=== PATIENT | male | born 1955 | race Caucasian/White ===

== ENCOUNTER 2017-01-19 16:03 | Observation (INO) | payer MEDICARE, MEDICAID ==
[2017-01-19 16:52] LABS: CHLORIDE,CL 102 mmol/L (98-115); SODIUM,NA 139 mmol/L (136-145)
[2017-01-19] MEDS ORDERED: Ondansetron 4 MG/2 ML SDV IV PRN (19:42)
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
[2017-01-19] MEDS: Dextrose 5%-0.45% NaCl 1,000 ML IV SCH (19:56)
[2017-01-19] MEDS: Pantoprazole 40 MG Vial IVPUSH SCH (19:56)
[2017-01-19] MEDS: cefTRIAXone 1 GM Vial IVPUSH SCH (19:56)
[2017-01-19] MEDS ORDERED: guaiFENesin/Dextromethorphan 100-10 MG/5 ML Soln 5 ML Cup GTUBE PRN (20:19)
[2017-01-19] MEDS: Gabapentin 300 MG Cap GTUBE SCH (20:49)
[2017-01-19] MEDS: traMADol 50 MG Tab GTUBE SCH (20:49)
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
[2017-01-20] MEDS: Dextrose 5%-0.45% NaCl 1,000 ML IV SCH (06:05)
[2017-01-20] MEDS: Gabapentin 300 MG Cap GTUBE SCH ×3 (08:47→21:05)
[2017-01-20] MEDS: Lactulose Soln 10 GM/15 ML 30 ML UD Cup GTUBE SCH (08:47)
[2017-01-20] MEDS: Citalopram 20 MG Tab GTUBE SCH (08:48)
[2017-01-20] MEDS: traMADol 50 MG Tab GTUBE SCH ×4 (08:48→21:05)
[2017-01-20] MEDS: Pantoprazole 40 MG Vial IVPUSH SCH (08:49)
[2017-01-20 09:11] LABS: CHLORIDE,CL 101 mmol/L (98-115); SODIUM,NA 139 mmol/L (136-145)
[2017-01-20] MEDS ORDERED: FIBER PEGTUBE SCH (09:30)
[2017-01-20] MEDS ORDERED: LACTOSE REDUCED FOOD PEGTUBE SCH (09:30)
[2017-01-20] MEDS ORDERED: Dextrose 5%-0.45% NaCl 1,000 ML IV SCH (09:45)
--- NOTE | 2017-01-20 10:20 | PCM.PN ---
- General Info Date of Service: 01/20/17 Functional Status: Reports: pain controlled, urinating. Denies: new symptoms - Review of Systems General: Denies: Fever, Chills, Appetite Pulmonary: Denies: shortness of breath, cough Cardiovascular: Denies: Chest Pain Gastrointestinal: Reports: Other (PEG tube in place). Denies: Abdominal pain, Constipation, Diarrhea, Nausea, Vomiting - Patient Data Vitals - most recent: Last Vital Signs Temp 96.9 F 01/20/17 06:28 Pulse 56 L 01/20/17 06:28 Resp 20 01/20/17 06:28 BP 146/78 H 01/20/17 06:28 Pulse Ox 97 01/20/17 06:28 Weight - most recent: 132 lb I&O - last 24 hours: Intake & Output 01/19/17 01/20/17 01/20/17 22:59 06:59 14:59 Intake Total 150 1148 Balance 150 1148 Lab Results last 24 hrs: Laboratory Results - last 24 hr 01/20/17 01/20/17 Range/Units 08:35 08:35 WBC 9.9 (5.0-10.0) 10^3/uL RBC 5.06 (4.50-6.00) 10^6/uL Hgb 12.3 L (13.0-17.0) g/dL Hct 39.5 L (40.0-52.0) % MCV 78.0 L (82.0-92.0) fL MCH 24.2 L (27.0-31.0) pg MCHC 31.0 L (32.0-36.0) g/dL RDW 18.4 H (11.5-14.5) % Plt Count 193 (150-300) 10^3/uL MPV 8.2 (7.4-10.4) fL Neut % (Auto) 71.4 H (50.0-70.0) % Lymph % (Auto) 17.7 L (20.0-40.0) % Pettis % (Auto) 8.3 H (2.0-8.0) % Eos % (Auto) 2.4 (1.0-3.0) % Baso % (Auto) 0.2 (0.0-1.0) % Neut # (Auto) 7.1 H (2.5-7.0) 10^3/uL Lymph # (Auto) 1.8 (1.0-4.0) 10^3/uL Pettis # (Auto) 0.8 (0.1-0.8) 10^3/uL Eos # (Auto) 0.2 (0.1-0.3) 10^3/uL Baso # (Auto) 0.0 (0.0-0.1) 10^3/uL Sodium 139 (136-145) mmol/L Potassium 3.6 (3.3-5.3) mmol/L Chloride 101 (98-115) mmol/L Carbon Dioxide 27.2 (21.0-32.0) mmol/L BUN 19 (6-25) mg/dL Creatinine 0.77 (0.51-1.17) mg/dL Est Cr Clr Drug Dosing TNP Estimated GFR (MDRD) > 60 mL/min Glucose 139 H (70-110) mg/dL Calcium 8.9 (8.7-10.3) mg/dL Med Orders - Current: Current Medications Ceftriaxone Sodium (Rocephin) 1 gm IVPUSH Q24H [facility] Last Admin: 01/19/17 19:56 Dose: 1 gm Citalopram Hydrobromide (Celexa) 30 mg GTUBE DAILY [facility] Last Admin: 01/20/17 08:48 Dose: 30 mg Gabapentin (Neurontin) 600 mg GTUBE TID [facility] Last Admin: 01/20/17 08:47 Dose: 600 mg Guaifenesin/Phenylephrine HCl (Robitussin Dm) 10 ml GTUBE Q4H PRN PRN Reason: Cough Dextrose/Sodium Chloride (Dextrose 5%-1/2 Ns) 1,000 mls @ 50 mls/hr IV ASDIRECTED [facility] Lactulose (Cephulac) 20 gm GTUBE DAILY [facility] Last Admin: 01/20/17 08:47 Dose: 20 gm Lactose-Reduced Food /Fiber [Isosource 1. 5 Mykel Tube Feed] 70 ml PEGTUBE ASDIRECTED DAVY Ondansetron HCl (Zofran) 4 mg IV Q4H PRN PRN Reason: Nausea/Vomiting Pantoprazole Sodium (Protonix Iv) 40 mg IVPUSH DAILY [facility] Last Admin: 01/20/17 08:49 Dose: 40 mg Tramadol HCl (Ultram) 50 mg GTUBE QID [facility] Last Admin: 01/20/17 08:48 Dose: 50 mg Discontinued Medications Dextrose/Sodium Chloride (Dextrose 5%-1/2 Ns) 1,000 mls @ 100 mls/hr IV ASDIRECTED [facility] Last Admin: 01/20/17 06:05 Dose: 100 mls/hr - Exam Quality Assessment: DVT prophylaxis (lovenox). No: supplemental oxygen, urine catheter, skin breakdown General: alert, oriented, cooperative, no acute distress Lungs: Clear to auscultation, Normal respiratory effort Cardiovascular: Regular Rate, Regular Rhythm Abdomen: bowel sounds present, soft, no tenderness, no distension, other (PEG tube in place) Skin: warm, dry, other (PEG tube site-mildly erythematous around opening with scant yellowish drainage, nontender) Neurological: normal speech Psy/Mental Status: alert. No: normal affect (flat affect) - Problem List Review Problem List Initiated/Reviewed/Updated: Yes - My Orders Last 24 Hours: My Active Orders 01/19/17 19:39 OCCULT BLD GASTRIC Routine OCCULT BLOOD DIAGNOSTIC [OP] Routine 01/19/17 19:42 Intake and Output [RC] 0600,1400,2300 May Shower [RC] ASDIRECTED Oxygen Therapy [RC] PRN Up With Assistance [RC] ASDIRECTED VTE/DVT Education [RC] PER UNIT ROUTINE Vital Signs [RC] 0700,1100,1500,1900,2300,0300 Consult to Inserting Operator [CONS] Routine Ondansetron [Zofran] 4 mg IV Q4H PRN Resuscitation Status Routine 01/19/17 19:45 Pantoprazole [ProTONIX IV] 40 mg IVPUSH DAILY 01/19/17 19:53 Antiembolic Devices [RC] PER UNIT ROUTINE LAURA Hose [Antiembolic Hose] [OM.PC] Routine 01/19/17 20:00 cefTRIAXone [Rocephin] 1 gm IVPUSH Q24H 01/19/17 20:17 Communication Order [RC] QID 01/19/17 20:19 Dextromethorphan/guaiFENesin [Robitussin DM] 10 ml GTUBE Q4H PRN 01/19/17 21:00 Gabapentin [Neurontin] 600 mg GTUBE TID traMADol [Ultram] 50 mg GTUBE QID 01/19/17 Dinner NPO [Nothing Per Oral Diet] [DIET] 01/20/17 05:00 OCCULT BLOOD DIAGNOSTIC [OP] Routine 01/20/17 09:00 Citalopram [Celexa] 30 mg GTUBE DAILY Lactulose [Cephulac] 20 gm GTUBE DAILY 01/20/17 09:05 CULTURE WOUND [RM] Routine 01/20/17 09:30 Lactose-Reduced Food/Fiber [Isosource 1.5 Mkyel Tube Feed] 70 ml PEGTUBE ASDIRECTED 01/20/17 09:45 Dextrose 5%-0.45% NaCl [Dextrose 5%-1/2 NS] 1,000 ml IV ASDIRECTED 01/21/17 05:11 BMP [BASIC METABOLIC PANEL,BMP] [CHEM] AM CBC WITH AUTO DIFF [HEME] AM - Plan Plan:: PRIMARY ASSESSMENT/PLAN: Rule out GI bleed. Patient has had no more episodes of nausea/vomiting. No abdominal pain. Hgb stable at 12.3. Amylase 60. Initial stool for occult negative. Repeat stool for occult x 2 and gastric occult sample if available. Restart tube feedings. Decrease IVF to 50 mL/hr. Continue protonix IV daily and zofran IV PRN. Continue to hold aspirin. Repeat CBC in AM. History of GI bleed. Leukocytosis, unknown etiology, improving. WBC 9.9 with left shift. UA negative. Blood cultures x 2 pending. Wound culture obtained of PEG tube site. Continue IV rocephin. Repeat CBC in AM. Dehydration, resolving. BUN/creatinine ratio 24. Decrease IVF to 50 mL/hr. Repeat BMP in AM. Question PEG tube site infection. Culture obtained. 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 PEG tube in place. Restart tube feedings as before. Hemiparesis affecting left side. Left above the knee amputation. Site appears intact without obvious signs of infection. History of hypertension. History of hyperlipidemia. History of iron deficiency anemia. History of tobacco abuse disorder. PVD. Depression. Continue celexa. Chronic back pain. Continue tramadol and gabapentin. GERD. Holding omeprazole and switched to Protonix IV. Alcoholic liver cirrhosis without ascites. AST slightly elevated at 43. DVT prophylaxis: Score of 2. Continue laura stocking on right leg. Overall plan: Restart tube feedings. Continue to monitor for nausea, vomiting, or abdominal pain. If no issues occur, patient would most likely be ready to be discharged back to the [facility] tomorrow. The treatment plan was reviewed with Dr. Tineo. He is in agreement with the plan of care.
[2017-01-20] MEDS: cefTRIAXone 1 GM Vial IVPUSH SCH (21:05)
[2017-01-21] MEDS: Citalopram 20 MG Tab GTUBE SCH (09:29)
[2017-01-21] MEDS: Gabapentin 300 MG Cap GTUBE SCH ×2 (09:30→13:08)
[2017-01-21] MEDS: Pantoprazole 40 MG Vial IVPUSH SCH (09:32)
[2017-01-21] MEDS: traMADol 50 MG Tab GTUBE SCH ×2 (09:32→13:06)
[2017-01-21] MEDS: Lactulose Soln 10 GM/15 ML 30 ML UD Cup GTUBE SCH (09:34)
[2017-01-21 14:14] VITALS: BP 158/77
--- NOTE | 2017-01-23 08:10 | DISCH ---
FINAL DIAGNOSES: 1. GI bleed, small, upper. 2. History of GI bleed with subsequent blood transfusions required in the past. 3. Leukocytosis, improving. 4. Dehydration, resolved. SECONDARY ASSESSMENT: 1. Status post right-sided CVA 2009 with dysphagia. 2. PEG tube in place. 3. Hemiparesis affecting left side. 4. Left above-knee amputation. 5. History of hypertension. 6. History of hyperlipidemia. 7. History of iron deficiency anemia. 8. History of tobacco use disorder. 9. Peripheral vascular disease. 10.Depression. 11.Chronic back pain. 12.GERD. 13.Alcoholic liver cirrhosis without ascites. HISTORY: This 61-year-old gentleman came to the ED with concerns of GI bleed. He has had this in the past. He has required other previous admissions and even an ED transfer to [place] due to blood antibodies requiring transfusion as the patient is a resident of [facility]. The nurses were concerned that he had three episodes of what they called coffee-ground colored emesis. The patient states he had no abdominal pain; however, he was nauseated when he came to the ED. He stated he had a bowel movement in the ED. He had no fever. No chills. No shortness of breath. No chest pain. He did have a workup in the ED, revealed a stable hemoglobin with a negative stool for occult blood at that time. His abdominal x-ray was negative. He was found to have an elevated white count, they thought was possible G-tube site. He was admitted for further workup, again he does have history of GI bleed. The patient even though he has dysphagia, he does take in honey thickened diet. He is also on about 20 hours of tube feedings per day, even though the ED report stated he took nothing by mouth. HOSPITAL COURSE: The patient's hospital course went fairly well. Although he did have a negative stool Hemoccult, he did have subsequent positive report on day 2, remained hemodynamically stable. His hemoglobin was monitored, it was stable around 12.7 to 12.3. There was hospitalization. The patient did refuse an upper GI endoscopy. We did continue with PPI therapy. However, we did change him to Protonix while he was in the hospital. He did have a slightly high potassium level of 5.4; however, on discharge, it was normal. Sodium 139, BUN 19, creatinine 0.77. No source of infection was noted. Microbiology report did show no growth on blood cultures, did show a wound culture to the G-tube site with staph coagulase negative. Did have a slight white count around 13,900 on admission, however that was normal on discharge. Did restart tube feedings. We continue with Protonix. We continued to hold aspirin. We really wanted to perform another upper GI scope, patient had one around 03/2016; however, he did refuse, and he was subsequently discharged. However, we did note that his PPI was most likely given on full stomach, this was changed to empty stomach at 1800 at night. MEDICATIONS: Aspirin was continued on discharge, risk versus benefit was discussed with the patient, also PPI omeprazole 20 mg b.i.d., ensure that is on empty stomach. The patient can continue on all other home medications. DISPOSITION: We were going to do an upper GI, however, the patient refused, so he was subsequently transferred back to [facility]. Nurses to report any ongoing upper GI bleed or lower GI bleed. Monitor hemoglobin one week, see the [facility] provider in one week, monitor for any hemodynamic changes. He can go back on his diet of thickened nectar along with his tube feedings. Please ensure PPI therapy is given on empty stomach, although we strongly encouraged the patient to have upper scope. We feel like his decision to refuse this is incongruent with further treatments of patient needing blood transfusions and frequent hospitalizations. An AMA was considered, however, we did not do this. CONSIDERATIONS AT FOLLOWUP: 1. CBC in one week, consider future upper GI, we can do this probably at the [facility] in the future if needed, if the patient would agree. 2. Continue aspirin, although with history of GI bleed, we feel this is risks versus benefit. He can get more benefit from subsequent risk. MDM: 47 minutes was spent on this discharge planning and process and coordinating care to the [facility] and working with vp digital marketing social media and crm, and Pharmacy. /[id number]/MODL MTDD
== END 2017-01-21 14:55 ==
LOC: KA.ED 16:03 → KA.MS 18:10
PROVIDERS: ADMIT Physician Assistant; ATTEND Nurse Practitioner Family
DX: K92.2 Gastrointestinal hemorrhage, unspecified (principal); D72.829 Elevated white blood cell count, unspecified; I10 Essential (primary) hypertension; E78.00 Pure hypercholesterolemia, unspecified; K21.9 Gastro-esophageal reflux disease without esophagitis; F32.9 Major depressive disorder, single episode, unspecified; Z79.82 Long term (current) use of aspirin; Z79.899 Other long term (current) drug therapy; Z98.890 Other specified postprocedural states; Z87.891 Personal history of nicotine dependence; Z91.018 Allergy to other foods; G81.94 Hemiplegia, unspecified affecting left nondominant side; E78.5 Hyperlipidemia, unspecified; D50.9 Iron deficiency anemia, unspecified; I73.9 Peripheral vascular disease, unspecified; G89.29 Other chronic pain; M54.5 Low back pain; K70.30 Alcoholic cirrhosis of liver without ascites
CPT/HCPCS: 36415; 74020; 80048; 80053; 81001; 82150; 82270; 82272; 85025; 85610; 85730; 87040; 87070; 87077; 96361; 96374; 96375; 96376; 99285; A9270; C9113; G0378; J0696; J7042

== ENCOUNTER 2017-06-05 07:46 | Day surgery (SDC) | payer MEDICARE, MEDICAID ==
[~2017-06-05 07:46] MED LIST: Midazolam 1 MG/ML 2 ML SDV ONE; Propofol 200 MG/20 ML SDV ONE; fentaNYL 100 MCG/2 ML SDV ONE
[2017-06-05] MEDS ORDERED: EPINEPHrine 1:10,000 1 MG/10 ML Syringe ONE (07:57)
[2017-06-05] MEDS ORDERED: Sodium Chloride 0.9% 5 ML Syringe FLUSH PRN (08:00)
[2017-06-05] MEDS ORDERED: Lactated Ringers 1,000 ML IV SCH (08:00)
[2017-06-05] MEDS ORDERED: fentaNYL 100 MCG/2 ML SDV IV ONE (09:15)
[2017-06-05] MEDS ORDERED: Midazolam 1 MG/ML 2 ML SDV IV ONE (09:15)
[2017-06-05] MEDS ORDERED: Propofol 200 MG/20 ML SDV IV ONE (09:15)
--- NOTE | 2017-06-05 09:39 | PCM.OPNOTE ---
- General Post-Op/Procedure Note Date of Surgery/Procedure: 06/05/17 Operative Procedure(s): Persistent vomiting, GERD, recent upper gastrointestinal bleeding, Findings: 5 cm hiatal hernia with evidence of reflux esophagitis. Otherwise negative examination. Pre Op Diagnosis: Persistent vomiting, GERD, recent upper GI bleeding Post-Op Diagnosis: Lex at the shanique hernia with reflux esophagitis. No acute cause of bleeding noted. Anesthesia Technique: MAC Primary Surgeon: Priti Acosta Complications: None Condition: Good Free Text/Narrative:: INFORMED CONSENT: Patient is here today for elective upper GI endoscopy. All aspects of this procedure have been discussed with the patient. All possible complications also, including possibility of perforation, infection, pain, bleeding, numbness of the throat, swallowing difficulty and unknown complications. In the event of perforation the patient may need surgical exploration to repair the defect. The patient understands fully well. Patient did not have any further questions for me at the end of my interview. The patient wishes for me to proceed. INSTRUMENT USED: Video gastroscope ANESTHESIA: [MAC] ASA CLASSIFICATION: [] PROCEDURE PERFORMED: [upper gastrointestinal endoscopy and biopsy at the gastroesophageal junction] PHARYNX: Normal. ESOPHAGUS: Normal. Proximal: Normal. Middle: mild esophagitis noted.. Lower: moderate esophagitis noted. if I synovator hiatal hernia is noted. GE Junction: moderately esophagitis noted. STOMACH: Normal. Cardia: Normal. Fundus: Normal. Lesser Curvature: Normal. Greater Curvature: Normal. The gastrostomy tube is noted. Antrum: Normal. Pylorus: Normal. DUODENUM: Normal. First Part: Normal. Second Part: Normal. Third Part: Normal. RETROFLEXION: Normal. BIOPSY: None. TOLERANCE: Excellent. COMPLICATIONS: None.
[2017-06-05 10:19] VITALS: BP 185/85
== END 2017-06-05 11:05 ==
LOC: KA.SDS 07:46
PROVIDERS: ATTEND Family Medicine
DX: K29.50 Unspecified chronic gastritis without bleeding (principal); K21.0 Gastro-esophageal reflux disease with esophagitis; K44.9 Diaphragmatic hernia without obstruction or gangrene; I10 Essential (primary) hypertension; E78.5 Hyperlipidemia, unspecified; F32.9 Major depressive disorder, single episode, unspecified; Z91.018 Allergy to other foods; Z79.82 Long term (current) use of aspirin; Z79.899 Other long term (current) drug therapy
CPT/HCPCS: 43239; J2250; J2704; J3010; J7120; 00740; 88305

== ENCOUNTER 2017-07-27 09:02 | Inpatient (IN) | payer MEDICARE, MEDICAID ==
--- NOTE | 2017-07-27 09:34 | EDM.PDOC ---
ED HPI GENERAL MEDICAL PROBLEM - General Chief Complaint: Gastrointestinal Problem Stated Complaint: ABD PAIN, NAUSEA Time Seen by Provider: 07/27/17 09:13 Source of Information: Reports: Patient, EMS, [facility] Records - History of Present Illness INITIAL COMMENTS - FREE TEXT/NARRATIVE: Patient presents via ambulance from [place] in [place] with report of abdominal pain and vomiting as well as pus around his feeding tube. Pt tells me that he did vomit yesterday but not today and now has no nausea or abdominal pain. He just doesn't feel but nothing specific. He has daily bowel movements and last was yesterday. No fever, dysuria, chest pain, back pain, cough. He says the pus around the feeding tube started about a week ago. - Related Data Allergies Allergy/AdvReac Type Severity Reaction Status Date / Time citric acid Allergy Cannot Verified 07/27/17 13:02 Remember orange juice Allergy Sweating Verified 07/27/17 13:02 Home Meds: Home Meds Citalopram [Celexa] 30 mg PO DAILY 08/05/15 [History] Calcium Carbonate/Vitamin D3 [Calcium 600-Vit D3 400 Tablet] 1 tab PO BID [History] Folic Acid 1 mg PEGTUBE DAILY 04/03/16 [History] Gabapentin [Neurontin] 600 mg PEGTUBE TID 04/03/16 [History] Lactobacillus Combination No.4 [Probiotic] 1 each GTUBE BID 06/20/16 [History] traMADol [Ultram] 50 mg PO QID 06/20/16 [History] Lactulose 30 ml PEGTUBE DAILY 01/19/17 [History] Acetaminophen [Tylenol] 650 mg PO Q6H PRN 06/05/17 [History] Dextromethorphan/guaiFENesin [Robitussin DM] 10 ml PO Q4H PRN 06/05/17 [History] Acetaminophen 325 - 650 mg PO Q6H PRN 07/27/17 [History] Aspirin 81 mg PEGTUBE DAILY 07/27/17 [History] Magnesium Hydroxide [Milk of Magnesia] 30 ml PO DAILY PRN 07/27/17 [History] Omeprazole 20 mg PEGTUBE BID 07/27/17 [History] Past Medical History HEENT History: Reports: Other (See Below) Other HEENT History: Dysphasia Cardiovascular History: Reports: High Cholesterol, Hypertension Respiratory History: Reports: Bronchitis, Recurrent, SOB Gastrointestinal History: Reports: Chronic Constipation, GERD, GI Bleed Other Gastrointestinal History: PEG Tube Genitourinary History: Reports: Urinary Incontinence Musculoskeletal History: Reports: Fracture Other Musculoskeletal History: Femur fracture Neurological History: Reports: CVA Other Neuro History: Left side paralysis Psychiatric History: Reports: Addiction, Depression Other Psychiatric History: hx of alcohol abuse and nicotine dependence Other Endocrine/Metabolic History: sugars checked QID at [place]. Hematologic History: Reports: Anemia Other Hematologic History: Patient has many antibodies in blood. Dermatologic History: Reports: Other (See Below) Other Dermatologic History: ulcer to left foot-MSSA 04/08/16 - Infectious Disease History Infectious Disease History: Reports: Hepatitis C - Past Surgical History Head Surgeries/Procedures: Reports: None GI Surgical History: Reports: EGD Other Musculoskeletal Surgeries/Procedures:: Pt presents with left hip pain s/p fall. Social & Family History - Family History Family Medical History: Noncontributory HEENT: Reports: None Cardiac: Reports: None, MA Respiratory: Reports: None GI: Reports: None : Reports: None OBGYN: Reports: None Musculoskeletal: Reports: None Neurological: Reports: None Psychiatric: Reports: None Endocrine/Metabolic: Reports: None Hematologic: Reports: None Immunologic: Reports: None Dermatologic: Reports: None Oncologic: Reports: None - Tobacco Use Smoking Status *Q: Former Smoker Packs/Tins Daily: 1 Used Tobacco, but Quit: Yes Month Tobacco Last Used: Oct Second Hand Smoke Exposure: No - Caffeine Use Caffeine Use: Reports: None - Recreational Drug Use Recreational Drug Use: No - Living Situation & Occupation Living situation: Reports: Extended Care Facility ED [facility] - Review of Systems Review Of Systems: See Below Constitutional: Reports: Malaise. Denies: Fever, Chills, Weakness, Diaphoresis HEENT: Denies: Ear Pain, Throat Pain, Vision Change Respiratory: Denies: Shortness of Breath, Cough Cardiovascular: Denies: Chest Pain, Lightheadedness, Syncope GI/Abdominal: Denies: Abdominal Pain, Constipation, Diarrhea, Nausea, Vomiting : Denies: Dysuria Musculoskeletal: Reports: Arm Pain (left, chronic). Denies: Neck Pain, Shoulder Pain, Back Pain Skin: Denies: Cyanosis, Jaundice, Mottled, Pallor, Diaphoresis Neurological: Denies: Confusion, Dizziness, Headache Psychiatric: Denies: Agitation, Confusion ED EXAM, GI/ABD - Physical Exam Exam: See Below Exam Limited By: No Limitations General Appearance: Alert, WD/WN, No Apparent Distress Eyes: Bilateral: Normal Appearance, EOMI Ears: Normal External Exam, Hearing Grossly Normal Nose: Normal Inspection, No Blood Throat/Mouth: Normal Inspection, Normal Lips, Normal Voice, No Airway Compromise Head: Atraumatic, Normocephalic Neck: Normal Inspection, Supple, Non-Tender, Full Range of Motion. No: Carotid Bruit Respiratory/Chest: No Respiratory Distress, Lungs Clear, Normal Breath Sounds, No Accessory Muscle Use Cardiovascular: Normal Peripheral Pulses, Tachycardia, Irregularly Irregular GI/Abdominal Exam: Normal Bowel Sounds, Soft, Non-Tender, No Organomegaly, No Distention, Other (There is a mid-epigastric feeding tube that has a moderate amount of yellow purulenct visible around it at the portal; this is swabbed for culture) Extremities: Other (right leg amputee) Neurological: Alert, Oriented, Normal Cognition, No Motor/Sensory Deficits Psychiatric: Normal Affect, Normal Mood Skin Exam: Warm, Dry, Intact, Normal Color, No Rash Course - Vital Signs Last Recorded V/S: Last Vital Signs Temp 98.1 F 07/27/17 09:26 Pulse 158 H 07/27/17 11:49 Resp 20 07/27/17 11:46 BP 110/71 07/27/17 11:49 Pulse Ox 100 07/27/17 11:46 - Orders/Labs/Meds Orders: Active Orders 24 hr Category Date Time Status Abdomen Pelvis w Cont [CT] Stat Exams 07/27/17 10:15 Ordered CULTURE BLOOD [BC] Stat Lab 07/27/17 10:14 Ordered CULTURE BLOOD [BC] Stat Lab 07/27/17 10:14 Ordered CULTURE WOUND [RM] Stat Lab 07/27/17 09:25 Ordered Sodium Chloride 0.9% [Normal Saline] Med 07/27/17 10:30 Active 50 ml FLUSH ASDIRECTED Blood Culture x2 Reflex Set [OM.PC] Stat Oth 07/27/17 10:14 Ordered Medication Orders Sodium Chloride (Normal Saline) 50 ml FLUSH ASDIRECTED DAVY Labs: Laboratory Tests 07/27/17 07/27/17 07/27/17 Range/Units 09:20 09:20 09:20 WBC 14.6 H (5.0-10.0) 10^3/uL RBC 5.38 (4.50-6.00) 10^6/uL Hgb 13.2 (13.0-17.0) g/dL Hct 41.9 (40.0-52.0) % MCV 78.0 L (82.0-92.0) fL MCH 24.5 L (27.0-31.0) pg MCHC 31.4 L (32.0-36.0) g/dL RDW 18.3 H (11.5-14.5) % Plt Count 353 H (150-300) 10^3/uL MPV 8.0 (7.4-10.4) fL Neut % (Auto) 73.9 H (50.0-70.0) % Lymph % (Auto) 10.5 L (20.0-40.0) % Leon % (Auto) 14.1 H (2.0-8.0) % Eos % (Auto) 0.7 L (1.0-3.0) % Baso % (Auto) 0.8 (0.0-1.0) % Neut # (Auto) 10.8 H (2.5-7.0) 10^3/uL Lymph # (Auto) 1.5 (1.0-4.0) 10^3/uL Leon # (Auto) 2.1 H (0.1-0.8) 10^3/uL Eos # (Auto) 0.1 (0.1-0.3) 10^3/uL Baso # (Auto) 0.1 (0.0-0.1) 10^3/uL Sodium 138 (136-145) mmol/L Potassium 4.0 (3.3-5.3) mmol/L Chloride 101 (98-115) mmol/L Carbon Dioxide 20.8 L (21.0-32.0) mmol/L BUN 23 (6-25) mg/dL Creatinine 0.91 (0.51-1.17) mg/dL Est Cr Clr Drug Dosing TNP Estimated GFR (MDRD) > 60 mL/min Glucose 131 H (70-110) mg/dL Lactic Acid 1.8 (0.4-2.0) mmol/L Calcium 9.1 (8.7-10.3) mg/dL Total Bilirubin 1.0 (0.2-1.0) mg/dL AST 13 L (15-37) U/L ALT 19 (12-78) U/L Alkaline Phosphatase 103 (46-116) IU/L C-Reactive Protein > 12.0 H (0.0-0.9) mg/dL Total Protein 8.5 H (6.4-8.2) g/dL Albumin 2.78 L (3.00-4.80) g/dL Meds: Medications Generic Name Dose Route Start Last Admin Trade Name Freq PRN Reason Stop Dose Admin Sodium Chloride 50 ml 07/27/17 10:30 Normal Saline FLUSH ASDIRECTED DAVY Discontinued Medications Generic Name Dose Route Start Last Admin Trade Name Freq PRN Reason Stop Dose Admin Diltiazem HCl 20 mg 07/27/17 11:51 Diltiazem IVPUSH 07/27/17 11:52 NOW ONE Ceftriaxone Sodium 2 gm/ 50 mls @ 200 mls/hr 07/27/17 11:59 07/27/17 12:19 Sodium Chloride IV 07/27/17 12:13 200 mls/hr ONETIME ONE Administration Metronidazole 500 mg/ Premix 0 mls @ 100 mls/hr 07/27/17 11:59 IV 07/27/17 12:00 ONETIME ONE Iopamidol 75 ml 07/27/17 10:23 Isovue-300 (61%) IV 07/27/17 10:24 ONETIME ONE Metoprolol Tartrate 5 mg 07/27/17 09:42 07/27/17 09:46 Lopressor IVPUSH 07/27/17 09:43 5 mg ONETIME ONE Administration Metoprolol Tartrate 5 mg 07/27/17 10:30 07/27/17 11:49 Lopressor IVPUSH 07/27/17 10:36 5 mg Q5M [facility] Administration - Re-Assessments/Exams Free Text/Narrative Re-Assessment/Exam: 07/27/17 09:36 Patient is not aware of any history of A Fib and we cannot find any record of it in his chart. 07/27/17 12:02 CT results show no evidence of intra-abdominal abscess. WBC is 14.6 with elevated CRP at 12. Discussed with SOBIA Styles who accepted for admission to treat the feeding tube infection and the A Fib with RVR. So far metoprolol 5 mg IV hasn't been successful in controlling the tachycardia. Will try 2nd dose and oral maintenance if successful. Patient wants to go back to [place] rather than stay in hospital but I discussed with him that with his infection and elevated heart rate he definitely needs to start treatment here for a day or two before he can return to [place]. He reluctantly agrees with this plan. 07/27/17 12:39 Have started Rocephin 2 gm and Metronidazole 1 gm IV for the infection. 07/27/17 12:42 Following the second dose of IV Metoprolol 5 mg, I watched his HR on the remote monitor and he consistently beats in the 150's when a nurse or provider are in the room with him but drops to 95-110 when alone in the room. Not sure why this is the case. 07/27/17 13:30 The dose of oral metoprolol 50 mg was given for maintenance when HR was controlled with the second dose of IVP; now the HR is staying in the 150's so will give the third dose of metoprolol 5 mg IVP to try to regain control and hopefully the oral dose will keep it down without over shooting our goal or causing hypotension. Will also give a bolus of fluids now. 07/27/17 14:10 Heart rate is down in 80-95 range now. Will transfer to inpatient status. Departure - Departure Time of Disposition: 14:10 Disposition: Admitted As Inpatient 64 Condition: Fair Clinical Impression: Complication of feeding tube Chronic wound infection of abdomen Qualifiers: Encounter type: initial encounter Qualified Code(s): S31.109A - Unspecified open wound of abdominal wall, unspecified quadrant without penetration into peritoneal cavity, initial encounter; L08.9 - Local infection of the skin and subcutaneous tissue, unspecified; L08.9 - Local infection of the skin and subcutaneous tissue, unspecified - Discharge Information Referrals: Priti Acosta MD [Primary Care Provider] - Forms: ED Department Discharge - My Orders Last 24 Hours: My Active Orders 07/27/17 09:25 CULTURE WOUND [RM] Stat 07/27/17 10:14 CULTURE BLOOD [BC] Stat CULTURE BLOOD [BC] Stat Blood Culture x2 Reflex Set [OM.PC] Stat 07/27/17 10:15 Abdomen Pelvis w Cont [CT] Stat 07/27/17 10:30 Sodium Chloride 0.9% [Normal Saline] 50 ml FLUSH ASDIRECTED - Assessment/Plan Last 24 Hours: My Active Orders 07/27/17 09:25 CULTURE WOUND [RM] Stat 07/27/17 10:14 CULTURE BLOOD [BC] Stat CULTURE BLOOD [BC] Stat Blood Culture x2 Reflex Set [OM.PC] Stat 07/27/17 10:15 Abdomen Pelvis w Cont [CT] Stat 07/27/17 10:30 Sodium Chloride 0.9% [Normal Saline] 50 ml FLUSH ASDIRECTED
[2017-07-27] MEDS ORDERED: Metoprolol Tartrate 5 MG/5 ML SDV IVPUSH ONE ×3 (09:42→13:27)
[2017-07-27 09:58] LABS: CHLORIDE,CL 101 mmol/L (98-115); SODIUM,NA 138 mmol/L (136-145)
[2017-07-27] MEDS ORDERED: Sodium Chloride 0.9% 50 ML SDV FLUSH SCH (10:30)
[2017-07-27] MEDS: Metoprolol Tartrate 5 MG/5 ML SDV IVPUSH SCH ×2 (11:49→13:30)
[2017-07-27] MEDS ORDERED: Diltiazem 25 MG/5 ML SDV IVPUSH ONE (11:51)
[2017-07-27] MEDS ORDERED: cefTRIAXone 2 GM in Sodium Chloride 0.9% 50 ML IV ONE (11:59)
[2017-07-27] MEDS ORDERED: METRONIDAZOLE IV ONE (11:59)
[2017-07-27] MEDS ORDERED: NORMAL SALINE IV ONE (11:59)
[2017-07-27] MEDS ORDERED: Metoprolol Tartrate 50 MG Tab PO ONE (12:24)
[2017-07-27] MEDS ORDERED: cefTRIAXone 1 GM Vial ONE (12:36)
[2017-07-27] MEDS ORDERED: Sodium Chloride 0.9% 1,000 ML IV ONE (13:27)
[2017-07-27] MEDS: Iopamidol 612 MG/ML 75 ML Bottle IV ONE ×2 (15:30→16:48)
[2017-07-27] MEDS ORDERED: Acetaminophen 325 MG Tab PO PRN (15:35)
[2017-07-27] MEDS ORDERED: Magnesium Hydroxide 400 MG/5 ML Susp 30 ML Cup PO PRN (15:35)
[2017-07-27] MEDS ORDERED: guaiFENesin/Dextromethorphan 100-10 MG/5 ML Soln 5 ML Cup PO PRN (15:35)
[2017-07-27] MEDS: Gabapentin 300 MG Cap SCH ×2 (18:10→20:35)
[2017-07-27] MEDS: traMADol 50 MG Tab PO SCH ×2 (18:10→20:35)
[2017-07-27] MEDS: Calcium Citrate/Vitamin D3 315 MG-250 Unit Tab PO SCH (20:34)
[2017-07-27] MEDS: Metoprolol Tartrate 50 MG Tab PO SCH (20:35)
[2017-07-27] MEDS: B.Bifidum/B.Longum/L.Acidophilus/L.Rhamnosus (Probiotic) Cap SCH (20:35)
[2017-07-27] MEDS ORDERED: Omeprazole 20 MG Cap.CR SCH (21:00)
[2017-07-28] MEDS: Metoprolol Tartrate 50 MG Tab PO SCH ×2 (08:10→21:11)
[2017-07-28] MEDS: Omeprazole 20 MG Cap.CR PO SCH ×2 (08:11→08:14)
[2017-07-28] MEDS: Aspirin 81 MG Tab.Chew PEGTUBE SCH (08:12)
[2017-07-28] MEDS: traMADol 50 MG Tab PO SCH ×4 (08:12→21:12)
[2017-07-28] MEDS: Calcium Citrate/Vitamin D3 315 MG-250 Unit Tab PO SCH ×2 (08:13→21:11)
[2017-07-28] MEDS: B.Bifidum/B.Longum/L.Acidophilus/L.Rhamnosus (Probiotic) Cap SCH ×2 (08:13→21:11)
[2017-07-28] MEDS: Citalopram 20 MG Tab PO SCH (08:13)
[2017-07-28] MEDS: Gabapentin 300 MG Cap SCH ×3 (08:13→21:12)
[2017-07-28] MEDS: Folic Acid 1 MG Tab SCH (08:13)
[2017-07-28] MEDS: Lactulose Soln 10 GM/15 ML 30 ML UD Cup SCH (08:14)
[2017-07-28 09:00] LABS: CHLORIDE,CL 106 mmol/L (98-115); SODIUM,NA 139 mmol/L (136-145)
[2017-07-28] MEDS ORDERED: cefTRIAXone 1 GM in Sodium Chloride 0.9% 50 ML IV ONE (10:02)
[2017-07-28] MEDS: Enoxaparin 40 MG/0.4 ML Syringe SUBCUT SCH (10:21)
--- NOTE | 2017-07-28 11:02 | PCM.HP ---
H&P History of Present Illness - General Date of Service: 07/27/17 Admit Problem/Dx: Admission Diagnosis/Problem Admission Diagnosis/Problem Atrial fibrillation with rapid ventricular response Source of Information: Patient, EMS Notes Reviewed, Correction Records, Old Records - History of Present Illness Initial Comments - Free Text/Narative: Patient admitted to hospital from the ER. He is a resident of the [facility]. It is reported by the group home care nursing staff the patient has been experiencing abdominal discomfort/N/V over the coarse of the past 4 days. He does have a feeding tube and receives Jevity feedings at the facility. Nursing report he has experienced these symptoms in the past with the feedings. Tissue surrounding the tube insertion site has been reddened with a pus type discharge. At the [place] a low grade fever was present. On arrival to the ER patient denied specific abdominal pain/N/V but offered he just did not feel good. Prior to hospital last stool was on Saturday. He did have several stools in the ER. ER workup completed. CT results indicated no evidence of intra- abdominal abscess. WBC is 14.6 with elevation of CRP at 12. He was give 2 gm of Rocephin and Flagyl 500mg in the ER. A Fib with RVR identified. No previous history. He received IV Metoprolol 5mg x 3 with Metoprolol 50mg oral in the ER. He then converted to NSR and was admitted to the floor. Onset of Symptoms: Reports: Gradual Symptom Onset Date: 07/24/17 Duration of Symptoms: Reports: Day(s): (Patient states symptoms present for the past 4 days), Intermittent Location: Reports: Abdomen Quality: Reports: Ache - Related Data Allergies/Adverse Reactions: Allergies Allergy/AdvReac Type Severity Reaction Status Date / Time citric acid Allergy Cannot Verified 07/27/17 13:02 Remember orange juice Allergy Sweating Verified 07/27/17 13:02 Home Medications: Home Meds Citalopram [Celexa] 30 mg PO DAILY 08/05/15 [History] Calcium Carbonate/Vitamin D3 [Calcium 600-Vit D3 400 Tablet] 1 tab PO BID [History] Folic Acid 1 mg PEGTUBE DAILY 04/03/16 [History] Gabapentin [Neurontin] 600 mg PEGTUBE TID 04/03/16 [History] Lactobacillus Combination No.4 [Probiotic] 1 each GTUBE BID 06/20/16 [History] traMADol [Ultram] 50 mg PO QID 06/20/16 [History] Lactulose 30 ml PEGTUBE DAILY 01/19/17 [History] Acetaminophen [Tylenol] 650 mg PO Q6H PRN 06/05/17 [History] Dextromethorphan/guaiFENesin [Robitussin DM] 10 ml PO Q4H PRN 06/05/17 [History] Acetaminophen 325 - 650 mg PO Q6H PRN 07/27/17 [History] Aspirin 81 mg PEGTUBE DAILY 07/27/17 [History] Magnesium Hydroxide [Milk of Magnesia] 30 ml PO DAILY PRN 07/27/17 [History] Omeprazole 20 mg PEGTUBE BID 07/27/17 [History] Dicloxacillin Sodium 500 mg PO Q6HR 5 Days #20 capsule 07/29/17 [Rx] Metoprolol Tartrate [Lopressor] 50 mg PO BID #60 tablet 07/29/17 [Rx] Past Medical History HEENT History: Reports: Other (See Below) Other HEENT History: Dysphasia Cardiovascular History: Reports: High Cholesterol, Hypertension Respiratory History: Reports: Bronchitis, Recurrent, SOB Gastrointestinal History: Reports: Chronic Constipation, GERD, GI Bleed Other Gastrointestinal History: PEG Tube Genitourinary History: Reports: Urinary Incontinence Musculoskeletal History: Reports: Fracture Other Musculoskeletal History: Femur fracture Neurological History: Reports: CVA Other Neuro History: Left side paralysis Psychiatric History: Reports: Addiction, Depression Other Psychiatric History: hx of alcohol abuse and nicotine dependence Other Endocrine/Metabolic History: sugars checked QID at [facility]. Hematologic History: Reports: Anemia Other Hematologic History: Patient has many antibodies in blood. Dermatologic History: Reports: Other (See Below) Other Dermatologic History: ulcer to left foot-MSSA 04/08/16 - Infectious Disease History Infectious Disease History: Reports: Hepatitis C - Past Surgical History Head Surgeries/Procedures: Reports: None GI Surgical History: Reports: EGD Other Musculoskeletal Surgeries/Procedures:: Pt presents with left hip pain s/p fall. Social & Family History - Family History Family Medical History: Noncontributory HEENT: Reports: None Cardiac: Reports: None, [place] Respiratory: Reports: None GI: Reports: None : Reports: None OBGYN: Reports: None Musculoskeletal: Reports: None Neurological: Reports: None Psychiatric: Reports: None Endocrine/Metabolic: Reports: None Hematologic: Reports: None Immunologic: Reports: None Dermatologic: Reports: None Oncologic: Reports: None - Tobacco Use Smoking Status *Q: Former Smoker Packs/Tins Daily: 1 Used Tobacco, but Quit: Yes Month Tobacco Last Used: Oct Second Hand Smoke Exposure: No - Caffeine Use Caffeine Use: Reports: None - Alcohol Use Days Per Week of Alcohol Use: 1 Number of Drinks Per Day: 1 Total Drinks Per Week: 1 - Recreational Drug Use Recreational Drug Use: No - Living Situation & Occupation Living situation: Reports: Extended Care Facility H&P Review of Systems - Review of Systems: Review Of Systems: See Below General: Reports: Fever (low grade during the past 4 days), Malaise. Denies: Chills, Decreased Appetite (receives tube feedings. takes very little by mouth) HEENT: Reports: Dysphasia. Denies: Ear Pain, Headaches, Sinus Congestion, Sore Throat Pulmonary: Denies: Shortness of Breath, Wheezing, Cough Cardiovascular: Denies: Chest Pain, Palpitations, Lightheadedness Gastrointestinal: Reports: Abdominal Pain (previous to hospital arrival), Diarrhea (loose stools in the ER), Difficulty Swallowing. Denies: Constipation Genitourinary: Denies: Dysuria, Frequency, Urgency Musculoskeletal: Reports: Other (left lower extremity amputation) Skin: Denies: Dryness, Rash Psychiatric: Denies: Confusion, Mood Lability, Agitation Neurological: Denies: Confusion, Dizziness, Headache, Numbness Hematologic/Lymphatic: Reports: No Symptoms Immunologic: Reports: No Symptoms Exam - Exam Exam: See Below - Vital Signs Vital Signs: Last Vital Signs Temp 98.3 F 07/28/17 07:00 Pulse 72 07/28/17 08:10 Resp 24 H 07/28/17 07:00 BP 137/76 07/28/17 08:10 Pulse Ox 96 07/28/17 07:00 Weight: 153 lb - Exam General: Alert, Oriented, Cooperative HEENT: Conjunctiva Clear, EOMI, Hearing Intact, Mucosa Moist & [place] Neck: Supple, Trachea Midline Lungs: Clear to Auscultation, Normal Respiratory Effort. No: Crackles, Rales, Rhonchi, Wheezing Cardiovascular: Irregular Rhythm, Tachycardia GI/Abdominal Exam: Normal Bowel Sounds, Soft, Non-Tender, Other (feeding tube. surrounding tissue reddened with yellowish drainage. Culture obtained in the ER) Extremities: Non-Tender, No Pedal Edema (of the right), Other (amputation of the left extremity) Skin: Warm, Dry, Intact. No: Rash Neuro Extensive - Mental Status: Alert, Normal Mood/Affect, Memory Intact Psychiatric: Alert, Normal Affect, Normal Mood - Patient Data Lab Results Last 24 hrs: Laboratory Results - last 24 hr 07/28/17 07/28/17 07/28/17 Range/Units 01:46 08:26 08:26 WBC 9.8 (5.0-10.0) 10^3/uL RBC 4.67 (4.50-6.00) 10^6/uL Hgb 11.6 L (13.0-17.0) g/dL Hct 36.8 L (40.0-52.0) % MCV 78.9 L (82.0-92.0) fL MCH 24.8 L (27.0-31.0) pg MCHC 31.4 L (32.0-36.0) g/dL RDW 18.1 H (11.5-14.5) % Plt Count 333 H (150-300) 10^3/uL MPV 7.4 (7.4-10.4) fL Neut % (Auto) 71.7 H (50.0-70.0) % Lymph % (Auto) 14.0 L (20.0-40.0) % [place] % (Auto) 10.8 H (2.0-8.0) % Eos % (Auto) 2.9 (1.0-3.0) % Baso % (Auto) 0.6 (0.0-1.0) % Neut # (Auto) 6.9 (2.5-7.0) 10^3/uL Lymph # (Auto) 1.4 (1.0-4.0) 10^3/uL [place] # (Auto) 1.1 H (0.1-0.8) 10^3/uL Eos # (Auto) 0.3 (0.1-0.3) 10^3/uL Baso # (Auto) 0.1 (0.0-0.1) 10^3/uL Sodium 139 (136-145) mmol/L Potassium 3.8 (3.3-5.3) mmol/L Chloride 106 (98-115) mmol/L Carbon Dioxide 21.3 (21.0-32.0) mmol/L BUN 23 (6-25) mg/dL Creatinine 0.76 (0.51-1.17) mg/dL Est Cr Clr Drug Dosing TNP Estimated GFR (MDRD) > 60 mL/min Glucose 101 (70-110) mg/dL Calcium 8.8 (8.7-10.3) mg/dL Total Bilirubin 0.3 (0.2-1.0) mg/dL AST 17 (15-37) U/L ALT 18 (12-78) U/L Alkaline Phosphatase 85 (46-116) IU/L Total Protein 7.7 (6.4-8.2) g/dL Albumin 2.57 L (3.00-4.80) g/dL Specimen Type Urincath Urine Color Yellow (YELLOW) Urine Appearance Cloudy H (CLEAR) Urine pH 6.0 (5.0-9.0) Ur Specific [place] 1.025 (1.005-1.030) Urine Protein 30 H (NEGATIVE) mg/dL Urine Glucose (UA) Negative (NEGATIVE) mg/dL Urine Ketones Negative (NEGATIVE) mg/dL Urine Occult Blood Negative (NEGATIVE) Urine Nitrite Negative (NEGATIVE) Urine Bilirubin Negative (NEGATIVE) Urine Urobilinogen 1.0 (0.2-1.0) E.U./dL Ur Leukocyte Esterase Negative (NEGATIVE) Urine RBC 0-5 /HPF Urine WBC 0-5 /HPF Ur Epithelial Cells Rare /LPF Amorphous Sediment Many H (0/HPF) /HPF Urine Bacteria Moderate H (NONE TO FEW) /HPF Urinalysis Comment See note Result Diagrams: 07/29/17 08:00 07/29/17 08:00 EKG INTERPRETATION Rhythm: A-Fib *Q Meaningful Use (ADM) - VTE *Q VTE Criteria *Q: - VTE Risk Assess *Q Each Risk Factor Represents 1 Point: None, Medical Patient Currently on Bedrest Total Score 1 Point Risk Factors: 1 Each Risk Factor Represents 2 Points: Age 60 - 74 Years Total Score 2 Point Risk Factors: 2 Each Risk Factor Represents 3 Points: None Total Score 3 Point Risk Factors: 0 Each Risk Factor Represents 5 Points: None Total Score 5 Point Risk Factors: 0 Venous Thromboembolism Risk Factor Score *Q: 3 - Stroke *Q Stroke Criteria *Q: - AMI *Q AMI Criteria *Q: Problem List Initiated/Reviewed/Updated: Yes Orders Last 24hrs: Active Orders 24 hr Category Date Time Status Patient Status [ADT] Routine ADT 07/27/17 19:23 Ordered Antiembolic Devices [RC] PER UNIT ROUTINE Care 07/27/17 19:28 Active Cardiac Monitoring [RC] CONTINUOUS Care 07/27/17 15:00 Active Communication Order [RC] DAILY Care 07/28/17 09:50 Active Height and Weight [RC] UPON Care 07/27/17 19:23 Active Intake and Output [RC] 1400,2200,0600 Care 07/27/17 19:26 Active Oxygen Therapy [RC] PRN Care 07/27/17 19:23 Active VTE/DVT Education [RC] PER UNIT ROUTINE Care 07/27/17 19:23 Active Vital Signs [RC] Q4H Care 07/27/17 19:23 Active Mechanical Soft Diet [DIET] Diet 07/28/17 Breakfast Active Chest 1V Frontal [CR] Routine Exams 07/27/17 15:03 Ordered BMP [BASIC METABOLIC PANEL,BMP] [CHEM] Routine Lab 07/29/17 05:11 Ordered CBC WITH AUTO DIFF [HEME] Routine Lab 07/29/17 05:11 Ordered Acetaminophen [Tylenol] Med 07/27/17 15:35 Active 650 mg PO Q6H PRN Aspirin Med 07/28/17 09:00 Active 81 mg PEGTUBE DAILY B.Bif/B.Long/L.Acidoph/L.Rhamn [Multi-Stella Plus] Med 07/27/17 21:00 Active 1 cap .XX BID Calcium Citrate/Vitamin D3 [Calcium Citrate + D] Med 07/27/17 21:00 Active 2 tab PO BID Citalopram [Celexa] Med 07/28/17 09:00 Active 30 mg PO DAILY Dextromethorphan/guaiFENesin [Robitussin DM] Med 07/27/17 15:35 Active 10 ml PO Q4H PRN Enoxaparin [Lovenox] Med 07/28/17 10:00 Active 40 mg SUBCUT Q24H Folic Acid Med 07/28/17 09:00 Active 1 mg .XX DAILY Gabapentin [Neurontin] Med 07/27/17 15:35 Active 600 mg .XX TID Lactulose [Cephulac] Med 07/28/17 09:00 Active 20 gm .XX DAILY Magnesium Hydroxide [Milk of Magnesia] Med 07/27/17 15:35 Active 30 ml PO DAILY PRN Metoprolol Tartrate [Lopressor] Med 07/27/17 21:00 Active 50 mg PO BID Omeprazole Med 07/28/17 07:00 Active 20 mg PO DAILY traMADol [Ultram] Med 07/27/17 17:00 Active 50 mg PO QID Antiembolic Hose [OM.PC] Per Unit Routine Oth 07/27/17 19:28 Ordered Resuscitation Status Routine Resus Stat 07/27/17 19:23 Ordered Medication Orders Acetaminophen (Tylenol) 650 mg PO Q6H PRN PRN Reason: Pain Aspirin (Aspirin) 81 mg PEGTUBE DAILY [facility] Last Admin: 07/28/17 08:12 Dose: 81 mg Calcium Citrate (Calcium Citrate + D) 2 tab PO BID [facility] Last Admin: 07/28/17 08:13 Dose: Not Given Admin: 07/27/17 20:34 Dose: Not Given Citalopram Hydrobromide (Celexa) 30 mg PO DAILY [facility] Last Admin: 07/28/17 08:13 Dose: 30 mg Enoxaparin Sodium (Lovenox) 40 mg SUBCUT Q24H [facility] Last Admin: 07/28/17 10:21 Dose: 40 mg Folic Acid (Folic Acid) 1 mg .XX DAILY [facility] Last Admin: 07/28/17 08:13 Dose: 1 mg Gabapentin (Neurontin) 600 mg .XX TID [facility] Last Admin: 07/28/17 08:13 Dose: 600 mg Admin: 07/27/17 20:35 Dose: Not Given Admin: 07/27/17 18:10 Dose: Not Given Guaifenesin/Phenylephrine HCl (Robitussin Dm) 10 ml PO Q4H PRN PRN Reason: Cough Lactobacillus Acidophilus/Rhamnosus (Multi-Stella Plus) 1 cap .XX BID [facility] Last Admin: 07/28/17 08:13 Dose: 1 cap Admin: 07/27/17 20:35 Dose: Not Given Lactulose (Cephulac) 20 gm .XX DAILY [facility] Last Admin: 07/28/17 08:14 Dose: Magnesium Hydroxide (Milk Of Magnesia) 30 ml PO DAILY PRN PRN Reason: Constipation Metoprolol Tartrate (Lopressor) 50 mg PO BID [facility] Last Admin: 07/28/17 08:10 Dose: 50 mg Admin: 07/27/17 20:35 Dose: Not Given Omeprazole (Omeprazole) 20 mg PO DAILY [facility] Last Admin: 07/28/17 08:14 Dose: Not Given Admin: 07/28/17 08:11 Dose: 20 mg Tramadol HCl (Ultram) 50 mg PO QID [facility] Last Admin: 07/28/17 08:12 Dose: 50 mg Admin: 07/27/17 20:35 Dose: Not Given Admin: 07/27/17 18:10 Dose: Not Given Assessment/Plan Comment:: Assessment and plan; Patient to be admitted with new onset A-Fib/RVR. Treated with IV and oral Metoprolol reverting to NSR. He will be placed on telemetry. IV saline lock. History of the abdominal discomfort/N/V, low grade fevers. Received IV Rocephin and Flagyl in the ER. WBC and CRP elevated. CT negative for abscess or other complication. Will repeat CBC on 07-28-17. Obtain a CXR and UA. Diarhea stools and possible recent intolerance to his tube feedings. will consult with cook apprentice pastry for tube feeding dosing. PMH History of CVA with dysphagia. Receives tube feedings. Past history of GI bleed and iron deficiency anemia. Depression managed with Celexa. Chronic pain syndrome. Has been managed with Ultram and Neurontin. GERD. Takes Omeprazole. Record review indicates UGI reveals hiatal hernia and reflux esophagitis. Consulted with Dr Noman Acosta MD. agrees with plan of care
--- NOTE | 2017-07-28 12:03 | PCM.PN ---
- General Info Date of Service: 07/28/17 Functional Status: Reports: Pain Controlled - Review of Systems General: Reports: Fatigue. Denies: Fever HEENT: Denies: Ear Pain, Headaches, Sore Throat Pulmonary: Denies: Shortness of Breath, Cough Cardiovascular: Denies: Chest Pain, Palpitations, Edema Gastrointestinal: Denies: Abdominal Pain, Constipation, Nausea, Vomiting Genitourinary: Denies: Dysuria, Frequency Skin: Denies: Dryness, Rash Neurological: Denies: Confusion, Headache - Patient Data Vitals - Most Recent: Last Vital Signs Temp 97.3 F 07/28/17 11:00 Pulse 67 07/28/17 11:00 Resp 16 07/28/17 11:00 BP 121/75 07/28/17 11:00 Pulse Ox 96 07/28/17 11:00 Weight - Most Recent: 153 lb I&O - Last 24 Hours: Intake & Output 07/27/17 07/28/17 07/28/17 22:59 06:59 14:59 Intake Total 30 0 Balance 30 0 Lab Results Last 24 Hours: Laboratory Results - last 24 hr 07/28/17 07/28/17 07/28/17 Range/Units 01:46 08:26 08:26 WBC 9.8 (5.0-10.0) 10^3/uL RBC 4.67 (4.50-6.00) 10^6/uL Hgb 11.6 L (13.0-17.0) g/dL Hct 36.8 L (40.0-52.0) % MCV 78.9 L (82.0-92.0) fL MCH 24.8 L (27.0-31.0) pg MCHC 31.4 L (32.0-36.0) g/dL RDW 18.1 H (11.5-14.5) % Plt Count 333 H (150-300) 10^3/uL MPV 7.4 (7.4-10.4) fL Neut % (Auto) 71.7 H (50.0-70.0) % Lymph % (Auto) 14.0 L (20.0-40.0) % [place] % (Auto) 10.8 H (2.0-8.0) % Eos % (Auto) 2.9 (1.0-3.0) % Baso % (Auto) 0.6 (0.0-1.0) % Neut # (Auto) 6.9 (2.5-7.0) 10^3/uL Lymph # (Auto) 1.4 (1.0-4.0) 10^3/uL [place] # (Auto) 1.1 H (0.1-0.8) 10^3/uL Eos # (Auto) 0.3 (0.1-0.3) 10^3/uL Baso # (Auto) 0.1 (0.0-0.1) 10^3/uL Sodium 139 (136-145) mmol/L Potassium 3.8 (3.3-5.3) mmol/L Chloride 106 (98-115) mmol/L Carbon Dioxide 21.3 (21.0-32.0) mmol/L BUN 23 (6-25) mg/dL Creatinine 0.76 (0.51-1.17) mg/dL Est Cr Clr Drug Dosing TNP Estimated GFR (MDRD) > 60 mL/min Glucose 101 (70-110) mg/dL Calcium 8.8 (8.7-10.3) mg/dL Total Bilirubin 0.3 (0.2-1.0) mg/dL AST 17 (15-37) U/L ALT 18 (12-78) U/L Alkaline Phosphatase 85 (46-116) IU/L Total Protein 7.7 (6.4-8.2) g/dL Albumin 2.57 L (3.00-4.80) g/dL Specimen Type Urincath Urine Color Yellow (YELLOW) Urine Appearance Cloudy H (CLEAR) Urine pH 6.0 (5.0-9.0) Ur Specific [place] 1.025 (1.005-1.030) Urine Protein 30 H (NEGATIVE) mg/dL Urine Glucose (UA) Negative (NEGATIVE) mg/dL Urine Ketones Negative (NEGATIVE) mg/dL Urine Occult Blood Negative (NEGATIVE) Urine Nitrite Negative (NEGATIVE) Urine Bilirubin Negative (NEGATIVE) Urine Urobilinogen 1.0 (0.2-1.0) E.U./dL Ur Leukocyte Esterase Negative (NEGATIVE) Urine RBC 0-5 /HPF Urine WBC 0-5 /HPF Ur Epithelial Cells Rare /LPF Amorphous Sediment Many H (0/HPF) /HPF Urine Bacteria Moderate H (NONE TO FEW) /HPF Urinalysis Comment See note 07/28/17 Range/Units 08:50 WBC (5.0-10.0) 10^3/uL RBC (4.50-6.00) 10^6/uL Hgb (13.0-17.0) g/dL Hct (40.0-52.0) % MCV (82.0-92.0) fL MCH (27.0-31.0) pg MCHC (32.0-36.0) g/dL RDW (11.5-14.5) % Plt Count (150-300) 10^3/uL MPV (7.4-10.4) fL Neut % (Auto) (50.0-70.0) % Lymph % (Auto) (20.0-40.0) % [place] % (Auto) (2.0-8.0) % Eos % (Auto) (1.0-3.0) % Baso % (Auto) (0.0-1.0) % Neut # (Auto) (2.5-7.0) 10^3/uL Lymph # (Auto) (1.0-4.0) 10^3/uL [place] # (Auto) (0.1-0.8) 10^3/uL Eos # (Auto) (0.1-0.3) 10^3/uL Baso # (Auto) (0.0-0.1) 10^3/uL Sodium (136-145) mmol/L Potassium (3.3-5.3) mmol/L Chloride (98-115) mmol/L Carbon Dioxide (21.0-32.0) mmol/L BUN (6-25) mg/dL Creatinine (0.51-1.17) mg/dL Est Cr Clr Drug Dosing Estimated GFR (MDRD) mL/min Glucose (70-110) mg/dL Calcium (8.7-10.3) mg/dL Total Bilirubin (0.2-1.0) mg/dL AST (15-37) U/L ALT (12-78) U/L Alkaline Phosphatase (46-116) IU/L Total Protein (6.4-8.2) g/dL Albumin (3.00-4.80) g/dL Specimen Type Urincath Urine Color Yellow (YELLOW) Urine Appearance Turbid H (CLEAR) Urine pH 5.5 (5.0-9.0) Ur Specific [place] >= 1.030 (1.005-1.030) Urine Protein Trace H (NEGATIVE) mg/dL Urine Glucose (UA) Negative (NEGATIVE) mg/dL Urine Ketones 40 H (NEGATIVE) mg/dL Urine Occult Blood Negative (NEGATIVE) Urine Nitrite Negative (NEGATIVE) Urine Bilirubin Negative (NEGATIVE) Urine Urobilinogen 0.2 (0.2-1.0) E.U./dL Ur Leukocyte Esterase Negative (NEGATIVE) Urine RBC Not seen /HPF Urine WBC Not seen /HPF Ur Epithelial Cells Not seen /LPF Amorphous Sediment Many H (0/HPF) /HPF Urine Bacteria Moderate H (NONE TO FEW) /HPF Urinalysis Comment Med Orders - Current: Current Medications Acetaminophen (Tylenol) 650 mg PO Q6H PRN PRN Reason: Pain Aspirin (Aspirin) 81 mg PEGTUBE DAILY [facility] Last Admin: 07/28/17 08:12 Dose: 81 mg Calcium Citrate (Calcium Citrate + D) 2 tab PO BID [facility] Last Admin: 07/28/17 08:13 Dose: Not Given Citalopram Hydrobromide (Celexa) 30 mg PO DAILY [facility] Last Admin: 07/28/17 08:13 Dose: 30 mg Enoxaparin Sodium (Lovenox) 40 mg SUBCUT Q24H [facility] Last Admin: 07/28/17 10:21 Dose: 40 mg Folic Acid (Folic Acid) 1 mg .XX DAILY [facility] Last Admin: 07/28/17 08:13 Dose: 1 mg Gabapentin (Neurontin) 600 mg .XX TID [facility] Last Admin: 07/28/17 08:13 Dose: 600 mg Guaifenesin/Phenylephrine HCl (Robitussin Dm) 10 ml PO Q4H PRN PRN Reason: Cough Lactobacillus Acidophilus/Rhamnosus (Multi-Stella Plus) 1 cap .XX BID [facility] Last Admin: 07/28/17 08:13 Dose: 1 cap Lactulose (Cephulac) 20 gm .XX DAILY [facility] Last Admin: 07/28/17 08:14 Dose: Not Given Magnesium Hydroxide (Milk Of Magnesia) 30 ml PO DAILY PRN PRN Reason: Constipation Metoprolol Tartrate (Lopressor) 50 mg PO BID [facility] Last Admin: 07/28/17 08:10 Dose: 50 mg Omeprazole (Omeprazole) 20 mg PO DAILY [facility] Last Admin: 07/28/17 08:14 Dose: Not Given Tramadol HCl (Ultram) 50 mg PO QID [facility] Last Admin: 07/28/17 08:12 Dose: 50 mg Discontinued Medications Ceftriaxone Sodium (Rocephin) Confirm Administered Dose 2 gm .ROUTE .STK-MED ONE Stop: 07/27/17 12:37 Last Admin: 07/27/17 15:29 Dose: Not Given Diltiazem HCl (Diltiazem) 20 mg IVPUSH NOW ONE Stop: 07/27/17 11:52 Last Admin: 07/27/17 15:02 Dose: Not Given Ceftriaxone Sodium 2 gm/ (Sodium Chloride) 50 mls @ 200 mls/hr IV ONETIME ONE Stop: 07/27/17 12:13 Last Admin: 07/27/17 12:19 Dose: 200 mls/hr Metronidazole 500 mg/ Premix 0 mls @ 100 mls/hr IV ONETIME ONE Stop: 07/27/17 12:00 Last Admin: 07/27/17 12:39 Dose: 100 mls/hr Sodium Chloride (Normal Saline) 1,000 mls @ 999 mls/hr IV .BOLUS ONE Stop: 07/27/17 14:27 Last Admin: 07/27/17 13:40 Dose: 999 mls/hr Ceftriaxone Sodium 1 gm/ (Sodium Chloride) 50 mls @ 200 mls/hr IV ONETIME ONE Stop: 07/28/17 10:16 Last Admin: 07/28/17 10:21 Dose: 200 mls/hr Iopamidol (Isovue-300 (61%)) 75 ml IV ONETIME ONE Stop: 07/27/17 10:24 Last Admin: 07/27/17 15:30 Dose: Not Given Metoprolol Tartrate (Lopressor) 5 mg IVPUSH ONETIME ONE Stop: 07/27/17 09:43 Last Admin: 07/27/17 09:46 Dose: 5 mg Metoprolol Tartrate (Lopressor) 5 mg IVPUSH Q5M DAVY Stop: 07/27/17 10:36 Last Admin: 07/27/17 13:30 Dose: 5 mg Metoprolol Tartrate (Lopressor) 50 mg PO ONETIME ONE Stop: 07/27/17 12:25 Last Admin: 07/27/17 12:42 Dose: 50 mg Metoprolol Tartrate (Lopressor) 5 mg IVPUSH ONETIME ONE Stop: 07/27/17 12:28 Last Admin: 07/27/17 15:29 Dose: Not Given Metoprolol Tartrate (Lopressor) 5 mg IVPUSH ONETIME ONE Stop: 07/27/17 13:28 Last Admin: 07/27/17 15:30 Dose: Not Given Omeprazole (Omeprazole) 20 mg .XX BID DAVY Sodium Chloride (Normal Saline) 50 ml FLUSH ASDIRECTED DAVY - Exam General: Alert, Oriented, Cooperative, No Acute Distress Neck: Supple Lungs: Clear to Auscultation, Normal Respiratory Effort. No: Crackles, Rales, Rhonchi, Wheezing Cardiovascular: Regular Rate, Regular Rhythm GI/Abdominal Exam: Normal Bowel Sounds, Soft, Non-Tender, Other (mild redness with drainage surrounding the tube feeding insertion site.) Extremities: No Pedal Edema - Problem List Review Problem List Initiated/Reviewed/Updated: Yes - My Orders Last 24 Hours: My Active Orders 07/27/17 15:00 Cardiac Monitoring [RC] CONTINUOUS 07/27/17 15:03 Chest 1V Frontal [CR] Routine 07/27/17 19:23 Patient Status [ADT] Routine Height and Weight [RC] UPON Oxygen Therapy [RC] PRN VTE/DVT Education [RC] PER UNIT ROUTINE Vital Signs [RC] Q4H Resuscitation Status Routine 07/27/17 19:26 Intake and Output [RC] 1400,2200,0600 07/27/17 19:28 Antiembolic Devices [RC] PER UNIT ROUTINE Antiembolic Hose [OM.PC] Per Unit Routine 07/27/17 21:00 Metoprolol Tartrate [Lopressor] 50 mg PO BID 07/28/17 07:00 Omeprazole 20 mg PO DAILY 07/28/17 09:50 Communication Order [RC] DAILY 07/28/17 10:00 Enoxaparin [Lovenox] 40 mg SUBCUT Q24H 07/28/17 Breakfast Mechanical Soft Diet [DIET] 07/29/17 05:11 BMP [BASIC METABOLIC PANEL,BMP] [CHEM] Routine CBC WITH AUTO DIFF [HEME] Routine - Plan Plan:: Assessment and plan; Patient to be admitted with new onset A-Fib/RVR. Treated with IV and oral Metoprolol reverting to NSR. He will be placed on telemetry. IV saline lock. stable throughout the night. Did have a 20 to 30 minute episode of A fib when taking oral medication this AM after coughing. Reverted to NSR. History of the abdominal discomfort/N/V, low grade fevers. Received IV Rocephin and Flagyl in the ER. WBC and CRP elevated. CT negative for abscess or other complication. Will repeat CBC on 07-29-17. WBC today 9.8. Rocephin 1 gm IV today. Obtained a CXR with no acute findings. UA pending. Diarhea stools and possible recent intolerance to his tube feedings. Isosource as recommended per clinical lab clerk. PMH History of CVA with dysphagia. Receives tube feedings. Past history of GI bleed and iron deficiency anemia. Depression managed with Celexa. Chronic pain syndrome. Has been managed with Ultram and Neurontin. GERD. Takes Omeprazole. Record review indicates UGI reveals hiatal hernia and reflux esophagitis.
[2017-07-29] MEDS ORDERED: Atropine 0.1 MG/ML 10 ML Syringe IVPUSH PRN (08:17)
[2017-07-29] MEDS ORDERED: Nitroglycerin 0.4 MG Tab.SL SL PRN (08:17)
[2017-07-29] MEDS ORDERED: Lidocaine 2% 100 MG/5 ML Syringe IVPUSH PRN (08:17)
[2017-07-29] MEDS ORDERED: EPINEPHrine 1:10,000 1 MG/10 ML Syringe IVPUSH PRN (08:17)
[2017-07-29] MEDS: Aspirin 81 MG Tab.Chew PEGTUBE SCH (08:27)
[2017-07-29] MEDS: Citalopram 20 MG Tab PO SCH (08:27)
[2017-07-29] MEDS: Calcium Citrate/Vitamin D3 315 MG-250 Unit Tab PO SCH (08:28)
[2017-07-29] MEDS: Lactulose Soln 10 GM/15 ML 30 ML UD Cup SCH (08:28)
[2017-07-29] MEDS: Folic Acid 1 MG Tab SCH (08:30)
[2017-07-29] MEDS: traMADol 50 MG Tab PO SCH (08:30)
[2017-07-29] MEDS: Metoprolol Tartrate 50 MG Tab PO SCH (08:31)
[2017-07-29] MEDS: Gabapentin 300 MG Cap SCH (08:32)
[2017-07-29] MEDS: B.Bifidum/B.Longum/L.Acidophilus/L.Rhamnosus (Probiotic) Cap SCH (08:32)
[2017-07-29] MEDS: Omeprazole 20 MG Cap.CR PO SCH (08:33)
[2017-07-29 08:34] LABS: CHLORIDE,CL 107 mmol/L (98-115); SODIUM,NA 141 mmol/L (136-145)
[2017-07-29] MEDS: Enoxaparin 40 MG/0.4 ML Syringe SUBCUT SCH (10:08)
[2017-07-29 11:17] VITALS: BP 119/71
--- NOTE | 2017-07-29 12:07 | PCM.DCSUM1 ---
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 He had excellent clinical improvement throughout his stay and was deemed ready for discharge back to [facility]. He will follow-up with PCP Veronica Smart NP, next week. Follow-up items underlined below in problem-based assessment and plan: # Atrial fibrillation: No hx of known arrhythmia prior to assessment in ED. Treated with IV and oral metoprolol in the ED and converted into NSR. Had a < 30min episode recurrence on telemetry approximately 24hrs after admission with an episode of coughing, but has otherwise been in NSR and tolerating metoprolol well. Etiology likely infection, but TSH ordered and pending to assess for possible etiology of thyroid disease and echocardiogram ordered to evaluate for underlying valvular disease. [id number] = 3 (hx HTN though not currently on medication and hx CVA though hemorrhagic related to aneurysm rupture) and HAS- BLED = 3 (cirrhosis, hx CVA, and hx reucurrent life-threatening UGIB while on anticoagulation), placing him in a difficult predicament with regard to initiating anticoagulation. Discussed this with the patient and will proceed with ongoing ASA treatment without anticoagulation. # Abdominal cellulitis: Initial presentation with abdominal discomfort, nausea, and low-grade fevers at [facility]. CT negative for intraabdominal abscess, but feeding tube site with evidence of cellulitis. Ceftriaxone and metronidazole given. WBC normalized. Blood cultures negative and wound culture with jo- sensitive Staph. aureus. Will be given dicloxacillin course for 5 days with follow-up to ensure resolution. # Diarrhea: Recurrent on tube feeds. Repair Technician recommended change to Isosource, which resulted in resolution. 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 Continued ASA. # Alcoholic cirrhosis: Stable. Continued lactulose. # GERD/hx recurrent UGIB: Stable. Continued omeprazole. # Depression: Stable. Continued citalopram. # Chronic pain: Stable. Continued tramadol, gabapentin, and acetaminophen. - Discharge Data Discharge Date: 07/29/17 Discharge Disposition: DC/Tfer to [facility] 03 Condition: Good - Patient Instructions Diet: Usual Diet as Tolerated Showering/Bathing: May Shower Wound/Incision Care: Keep Operative Site/Wound Site Clean and Dry Notify Provider of: Fever, Increased Pain, Swelling and Redness, Drainage - Discharge Plan Prescriptions/Med Rec: Dicloxacillin Sodium 500 mg PO Q6HR 5 Days #20 capsule Metoprolol Tartrate [Lopressor] 50 mg PO BID #60 tablet Home Medications: Home Meds Citalopram [Celexa] 30 mg PO DAILY 08/05/15 [History] Calcium Carbonate/Vitamin D3 [Calcium 600-Vit D3 400 Tablet] 1 tab PO BID [History] Folic Acid 1 mg PEGTUBE DAILY 04/03/16 [History] Gabapentin [Neurontin] 600 mg PEGTUBE TID 04/03/16 [History] Lactobacillus Combination No.4 [Probiotic] 1 each GTUBE BID 06/20/16 [History] traMADol [Ultram] 50 mg PO QID 06/20/16 [History] Lactulose 30 ml PEGTUBE DAILY 01/19/17 [History] Dextromethorphan/guaiFENesin [Robitussin DM] 10 ml PO Q4H PRN 06/05/17 [History] Acetaminophen 325 - 650 mg PO Q6H PRN 07/27/17 [History] Aspirin 81 mg PEGTUBE DAILY 07/27/17 [History] Magnesium Hydroxide [Milk of Magnesia] 30 ml PO DAILY PRN 07/27/17 [History] Omeprazole 20 mg PEGTUBE BID 07/27/17 [History] Dicloxacillin Sodium 500 mg PO Q6HR 5 Days #20 capsule 07/29/17 [Rx] Metoprolol Tartrate [Lopressor] 50 mg PO BID #60 tablet 07/29/17 [Rx] Forms: ED Department Discharge Referrals: Veronica Smart ADMISSION NURSE [Nurse Practitioner] - - Discharge Summary/Plan Comment DC Time >30 min.: Yes - General Info Date of Service: 07/29/17 Subjective Update: Mr. Del Rio reports feeling well this morning and strongly desires going home. He denies any further abdominal pain, nausea, fever, or chills since admission. He also denies any chest pain, palpitations, shortness of breath, or cough. Tolerating tube feeds well. No other concerns. - Patient Data Vitals - Most Recent: Last Vital Signs Temp 36.0 C 07/29/17 11:00 Pulse 62 07/29/17 11:00 Resp 20 07/29/17 11:00 BP 119/71 07/29/17 11:00 Pulse Ox 94 L 07/29/17 11:00 Weight - Most Recent: 69.4 kg I&O - Last 24 hours: Intake & Output 07/28/17 07/29/17 07/29/17 22:59 06:59 14:59 Intake Total 200 592 Balance 200 592 Lab Results - Last 24 hrs: Laboratory Results - last 24 hr 07/29/17 07/29/17 Range/Units 08:00 08:00 WBC 7.8 (5.0-10.0) 10^3/uL RBC 4.68 (4.50-6.00) 10^6/uL Hgb 11.5 L (13.0-17.0) g/dL Hct 37.4 L (40.0-52.0) % MCV 80.0 L (82.0-92.0) fL MCH 24.6 L (27.0-31.0) pg MCHC 30.7 L (32.0-36.0) g/dL RDW 18.0 H (11.5-14.5) % Plt Count 355 H (150-300) 10^3/uL MPV 7.4 (7.4-10.4) fL Neut % (Auto) 65.4 (50.0-70.0) % Lymph % (Auto) 17.5 L (20.0-40.0) % [place] % (Auto) 12.2 H (2.0-8.0) % Eos % (Auto) 4.3 H (1.0-3.0) % Baso % (Auto) 0.6 (0.0-1.0) % Neut # (Auto) 5.1 (2.5-7.0) 10^3/uL Lymph # (Auto) 1.4 (1.0-4.0) 10^3/uL [place] # (Auto) 1.0 H (0.1-0.8) 10^3/uL Eos # (Auto) 0.3 (0.1-0.3) 10^3/uL Baso # (Auto) 0.0 (0.0-0.1) 10^3/uL Sodium 141 (136-145) mmol/L Potassium 3.9 (3.3-5.3) mmol/L Chloride 107 (98-115) mmol/L Carbon Dioxide 21.4 (21.0-32.0) mmol/L BUN 24 (6-25) mg/dL Creatinine 0.72 (0.51-1.17) mg/dL Est Cr Clr Drug Dosing TNP Estimated GFR (MDRD) > 60 mL/min Glucose 137 H (70-110) mg/dL Calcium 8.4 L (8.7-10.3) mg/dL Med Orders - Current: Current Medications Acetaminophen (Tylenol) 650 mg PO Q6H PRN PRN Reason: Pain Aspirin (Aspirin) 81 mg PEGTUBE DAILY [facility] Last Admin: 07/29/17 08:27 Dose: 81 mg Atropine Sulfate (Atropine 0.1 Mg/Ml) 0 mg IVPUSH ASDIRECTED PRN PRN Reason: Heart Calcium Citrate (Calcium Citrate + D) 2 tab PO BID [facility] Last Admin: 07/29/17 08:28 Dose: 2 tab Citalopram Hydrobromide (Celexa) 30 mg PO DAILY [facility] Last Admin: 07/29/17 08:27 Dose: 30 mg Enoxaparin Sodium (Lovenox) 40 mg SUBCUT Q24H [facility] Last Admin: 07/29/17 10:08 Dose: 40 mg Epinephrine HCl (Epinephrine 1:10,000) 1 mg IVPUSH ASDIRECTED PRN PRN Reason: Heart Folic Acid (Folic Acid) 1 mg .XX DAILY [facility] Last Admin: 07/29/17 08:30 Dose: 1 mg Gabapentin (Neurontin) 600 mg .XX TID [facility] Last Admin: 07/29/17 08:32 Dose: 600 mg Guaifenesin/Phenylephrine HCl (Robitussin Dm) 10 ml PO Q4H PRN PRN Reason: Cough Lactobacillus Acidophilus/Rhamnosus (Multi-Stella Plus) 1 cap .XX BID [facility] Last Admin: 07/29/17 08:32 Dose: 1 cap Lactulose (Cephulac) 20 gm .XX DAILY [facility] Last Admin: 07/29/17 08:28 Dose: Not Given Lidocaine HCl (Xylocaine 2%) 0 mg IVPUSH ASDIRECTED PRN PRN Reason: Heart Magnesium Hydroxide (Milk Of Magnesia) 30 ml PO DAILY PRN PRN Reason: Constipation Metoprolol Tartrate (Lopressor) 50 mg PO BID [facility] Last Admin: 07/29/17 08:31 Dose: 50 mg Nitroglycerin (Nitrostat) 0.4 mg SL ASDIRECTED PRN PRN Reason: Heart Omeprazole (Omeprazole) 20 mg PO DAILY [facility] Last Admin: 07/29/17 08:33 Dose: 20 mg Tramadol HCl (Ultram) 50 mg PO QID [facility] Last Admin: 07/29/17 08:30 Dose: 50 mg Discontinued Medications Ceftriaxone Sodium (Rocephin) Confirm Administered Dose 2 gm .ROUTE .STK-MED ONE Stop: 07/27/17 12:37 Last Admin: 07/27/17 15:29 Dose: Not Given Diltiazem HCl (Diltiazem) 20 mg IVPUSH NOW ONE Stop: 07/27/17 11:52 Last Admin: 07/27/17 15:02 Dose: Not Given Ceftriaxone Sodium 2 gm/ (Sodium Chloride) 50 mls @ 200 mls/hr IV ONETIME ONE Stop: 07/27/17 12:13 Last Admin: 07/27/17 12:19 Dose: 200 mls/hr Metronidazole 500 mg/ Premix 0 mls @ 100 mls/hr IV ONETIME ONE Stop: 07/27/17 12:00 Last Admin: 07/27/17 12:39 Dose: 100 mls/hr Sodium Chloride (Normal Saline) 1,000 mls @ 999 mls/hr IV .BOLUS ONE Stop: 07/27/17 14:27 Last Admin: 07/27/17 13:40 Dose: 999 mls/hr Ceftriaxone Sodium 1 gm/ (Sodium Chloride) 50 mls @ 200 mls/hr IV ONETIME ONE Stop: 07/28/17 10:16 Last Admin: 07/28/17 10:21 Dose: 200 mls/hr Iopamidol (Isovue-300 (61%)) 75 ml IV ONETIME ONE Stop: 07/27/17 10:24 Last Admin: 07/27/17 15:30 Dose: Not Given Metoprolol Tartrate (Lopressor) 5 mg IVPUSH ONETIME ONE Stop: 07/27/17 09:43 Last Admin: 07/27/17 09:46 Dose: 5 mg Metoprolol Tartrate (Lopressor) 5 mg IVPUSH Q5M [facility] Stop: 07/27/17 10:36 Last Admin: 07/27/17 13:30 Dose: 5 mg Metoprolol Tartrate (Lopressor) 50 mg PO ONETIME ONE Stop: 07/27/17 12:25 Last Admin: 07/27/17 12:42 Dose: 50 mg Metoprolol Tartrate (Lopressor) 5 mg IVPUSH ONETIME ONE Stop: 07/27/17 12:28 Last Admin: 07/27/17 15:29 Dose: Not Given Metoprolol Tartrate (Lopressor) 5 mg IVPUSH ONETIME ONE Stop: 07/27/17 13:28 Last Admin: 07/27/17 15:30 Dose: Not Given Omeprazole (Omeprazole) 20 mg .XX BID [facility] Sodium Chloride (Normal Saline) 50 ml FLUSH ASDIRECTED DAVY - Exam Physical Findings Comments:: GENERAL: Well-appearing adult male appearing older than stated age lying in hospital bed in no acute distress. HEENT: Normocephalic, atraumatic. Conjunctiva clear. Mucous membranes moist. NECK: Supple, no masses. CV: Regular rate and rhythm, no murmurs, rubs, or gallops. 2+ radial pulses. PULMONARY: Normal effort, clear to auscultation bilaterally, no wheezes, rales, or rhonchi. ABDOMEN: Positive bowel sounds, soft, nontender, nondistended, feeding tube site with mild surrounding redness without drainage or odor. EXTREMITIES: LLE with well-healed AKA. DERMATOLOGIC: No rashes or suspicious lesions in exposed areas besides feeding tube site, as above. PSYCHIATRIC: Alert, interactive, appropriate affect. *Q Meaningful Use (DIS) - VTE *Q VTE Criteria *Q: - Stroke *Q Stroke Criteria *Q: - AMI *Q AMI Criteria *Q:
== END 2017-07-29 13:20 | DRG 310 ==
LOC: KA.ED 09:02 → KA.MS 12:49
PROVIDERS: ADMIT Physician Assistant Surgical; ATTEND Family Medicine
DX: T83.518A Infection and inflammatory reaction due to other urinary catheter, initial encounter (principal); I48.91 Unspecified atrial fibrillation; E78.00 Pure hypercholesterolemia, unspecified; I10 Essential (primary) hypertension; D50.9 Iron deficiency anemia, unspecified; K59.09 Other constipation; G89.4 Chronic pain syndrome; K21.9 Gastro-esophageal reflux disease without esophagitis; R32 Unspecified urinary incontinence; F32.9 Major depressive disorder, single episode, unspecified; R13.10 Dysphagia, unspecified; S06.9X0S Unspecified intracranial injury without loss of consciousness, sequela; D64.9 Anemia, unspecified; Z87.891 Personal history of nicotine dependence; Z79.899 Other long term (current) drug therapy; Z86.73 Personal history of transient ischemic attack (TIA), and cerebral infarction without residual deficits
CPT/HCPCS: 36415; 74177; 80053; 83605; 85025; 86140; 87040 ×2; 87070; 87077; 87186; 93005; 96365; 96367; 96375; 99285; A9270; J0696; J7050; 71010; 80048; 81001; 84436; 84443; 96376; J1650; J3490; J7030; Q9967

== ENCOUNTER 2017-08-02 15:02 | Inpatient (IN) | payer MEDICARE, MEDICAID ==
[2017-08-02] MEDS ORDERED: Albuterol 0.083% 2.5 MG/3 ML Neb Soln NEB ONE (15:34)
--- NOTE | 2017-08-02 17:25 | EDM.PDOC ---
ED HPI GENERAL MEDICAL PROBLEM - General Chief Complaint: Headache Stated Complaint: NECK PAIN,HEADACHE Time Seen by Provider: 08/02/17 15:10 Source of Information: Reports: Patient, EMS Notes Reviewed, Fdc Records History Limitations: Reports: Other (poor historian) - History of Present Illness INITIAL COMMENTS - FREE TEXT/NARRATIVE: 61-year-old male resident at the [facility] in [facility], presents to the ER with complaints of fever, cough, shoulder and neck pain. Patient presented with a temperature of 102 today. He has had persistent cough and has been wheezing. He is felt under whether and had vomited earlier today during his bath. He denies chest pain, change in speech, visual change, or new onset of weakness. 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 He denies significant abdominal pain this time. He was recently admitted for atrial fib with RVR. He is brought by ambulance for further evaluation today. Onset: Today Onset Date: 08/02/17 Location: Reports: Neck, Chest, Upper Extremity, Left Quality: Reports: Ache Severity: Moderate Improves with: Reports: None Worsens with: Reports: None Associated Symptoms: Reports: cough w sputum, Fever/Chills, Nausea/Vomiting. Denies: Confusion, Chest Pain, Headaches, Shortness of Breath Treatments [employer]: Reports: Acetaminophen - Related Data Allergies Allergy/AdvReac Type Severity Reaction Status Date / Time citric acid Allergy Cannot Verified 08/02/17 19:57 Remember orange juice Allergy Sweating Verified 08/02/17 19:57 Home Meds: Home Meds Citalopram [Celexa] 30 mg PO DAILY 08/05/15 [History] Calcium Carbonate/Vitamin D3 [Calcium 600-Vit D3 400 Tablet] 1 tab PO BID [History] Folic Acid 1 mg PEGTUBE DAILY 04/03/16 [History] Gabapentin [Neurontin] 600 mg PEGTUBE TID 04/03/16 [History] Lactobacillus Combination No.4 [Probiotic] 1 each GTUBE BID 06/20/16 [History] traMADol [Ultram] 50 mg PO QID 06/20/16 [History] Lactulose 30 ml PEGTUBE DAILY 01/19/17 [History] Dextromethorphan/guaiFENesin [Robitussin DM] 10 ml PO Q4H PRN 06/05/17 [History] Acetaminophen 325 - 650 mg PO Q6H PRN 07/27/17 [History] Aspirin 81 mg PEGTUBE DAILY 07/27/17 [History] Magnesium Hydroxide [Milk of Magnesia] 30 ml PO DAILY PRN 07/27/17 [History] Omeprazole 20 mg PEGTUBE BID 07/27/17 [History] Dicloxacillin Sodium 500 mg PO Q6HR 5 Days #20 capsule 07/29/17 [Rx] Metoprolol Tartrate [Lopressor] 50 mg PO BID #60 tablet 07/29/17 [Rx] Past Medical History HEENT History: Reports: Other (See Below) Other HEENT History: Dysphasia Cardiovascular History: Reports: High Cholesterol, Hypertension Respiratory History: Reports: Bronchitis, Recurrent, SOB Gastrointestinal History: Reports: Chronic Constipation, GERD, GI Bleed Other Gastrointestinal History: PEG Tube Genitourinary History: Reports: Urinary Incontinence Musculoskeletal History: Reports: Fracture Other Musculoskeletal History: Femur fracture Neurological History: Reports: CVA Other Neuro History: Left side paralysis Psychiatric History: Reports: Addiction, Depression Other Psychiatric History: hx of alcohol abuse and nicotine dependence Other Endocrine/Metabolic History: sugars checked QID at [place]. Hematologic History: Reports: Anemia Other Hematologic History: Patient has many antibodies in blood. Dermatologic History: Reports: Other (See Below) Other Dermatologic History: ulcer to left foot-MSSA 04/08/16 - Infectious Disease History Infectious Disease History: Reports: Hepatitis C - Past Surgical History Head Surgeries/Procedures: Reports: None GI Surgical History: Reports: EGD Other Musculoskeletal Surgeries/Procedures:: Pt presents with left hip pain s/p fall. Social & Family History - Family History Family Medical History: Noncontributory HEENT: Reports: None Cardiac: Reports: None, [place] Respiratory: Reports: None GI: Reports: None : Reports: None OBGYN: Reports: None Musculoskeletal: Reports: None Neurological: Reports: None Psychiatric: Reports: None Endocrine/Metabolic: Reports: None Hematologic: Reports: None Immunologic: Reports: None Dermatologic: Reports: None Oncologic: Reports: None - Tobacco Use Smoking Status *Q: Former Smoker Packs/Tins Daily: 1 Used Tobacco, but Quit: Yes Month Tobacco Last Used: Oct Second Hand Smoke Exposure: No - Caffeine Use Caffeine Use: Reports: None - Alcohol Use Days Per Week of Alcohol Use: 1 Number of Drinks Per Day: 1 Total Drinks Per Week: 1 - Recreational Drug Use Recreational Drug Use: No - Living Situation & Occupation Living situation: Reports: Extended Care Facility ED ROS GENERAL - Review of Systems Review Of Systems: See Below Constitutional: Reports: Fever HEENT: Denies: Ear Pain, Eye Pain, Throat Pain, Vision Change Respiratory: Reports: Wheezing, Cough. Denies: Shortness of Breath Cardiovascular: Denies: Chest Pain, Palpitations Endocrine: Denies: High Glucose GI/Abdominal: Reports: Nausea, Vomiting. Denies: Abdominal Pain : Denies: No Symptoms Musculoskeletal: Reports: Neck Pain, Shoulder Pain Skin: Reports: No Symptoms Neurological: Reports: Pre-Existing Deficit. Denies: Confusion, Headache, Trouble Speaking Psychiatric: Reports: Depression Hematologic/Lymphatic: Reports: No Symptoms Immunologic: Reports: No Symptoms ED EXAM, GENERAL - Physical Exam Exam: See Below General Appearance: Alert, WD/WN, No Apparent Distress Eye Exam: Bilateral Eye: EOMI, PERRL Ears: Hearing Grossly Normal, Other (cerumen impaction left ear, right ear TM present and clear) Nose: Normal Inspection Throat/Mouth: Normal Inspection, Normal Oropharynx, Normal Voice, No Airway Compromise Head: Atraumatic Neck: Normal Inspection, Supple Respiratory/Chest: No Respiratory Distress, Decreased Breath Sounds, Crackles, Wheezing Cardiovascular: Normal Peripheral Pulses, Regular Rate, Rhythm, No JVD, No Murmur Peripheral Pulses: 2+: Carotid (L), Carotid (R), Radial (L), Radial (R), Dorsalis Pedis (R) GI/Abdominal: Soft, Non-Tender Extremities: Normal Inspection, Other (AKA left) Neurological: Alert, Oriented, CN II-XII Intact, Other (flaccid weakness of the left upper extremity due to prior history of stroke) Psychiatric: Depressed Mood, Flat Affect Skin Exam: Warm, Diaphoretic Lymphatic: No Adenopathy EKG INTERPRETATION EKG Date: 08/02/17 Rhythm: NSR Industry: Normal P-Wave: Present QRS: Normal Comparison: Change From Previous EKG EKG Interpretation Comments: 1. Normal sinus rhythm 2. Septal infarct age indeterminate Course - Vital Signs Text/Narrative:: Chest x-ray Findings: Small infiltrate with developing effusionis seen. Right lung is clear. Cardiomegaly contours stable Impression: Early pneumonia with effusion left lung base X-rays cervical spine Findings; No fracture or subluxation of C1-C5 is seen Impression: No fracture or subluxation of the upper cervical spine X-rays 2 views left shoulder Findings: Appears to be a minimally old fracture of the distal left clavicle. There is no definite new fracture or dislocation. There are mild degenerative changes. The bones are somewhat osteopenic Impression: No new findings. Degenerative changes. Old left distal clavicle fracture. Last Recorded V/S: Last Vital Signs Temp 97.3 F 08/03/17 11:44 Pulse 84 08/03/17 11:44 Resp 20 08/03/17 11:44 BP 146/81 H 08/03/17 11:44 Pulse Ox 94 L 08/03/17 11:44 - Orders/Labs/Meds Orders: Active Orders 24 hr Category Date Time Status Admission Diagnosis [ADT] Routine ADT 08/02/17 18:24 Ordered Patient Status [ADT] Routine ADT 08/02/17 18:25 Ordered EKG Documentation Completion [RC] Care 08/02/17 15:32 Active Height and Weight [RC] 0700 Care 08/02/17 18:24 Active Oxygen Therapy [RC] Care 08/02/17 18:29 Active RT Aerosol Therapy [RC] ASDIRECTED Care 08/02/17 15:34 Active Up With Assistance [RC] DAILY Care 08/02/17 18:24 Active Vital Signs [RC] 0300,0700,1100,1500,1900,2300 Care 08/02/17 18:25 Active CXR [Chest 2V] [CR] Stat Exams 08/02/17 15:30 Ordered Cervical Spine 2V or 3V [CR] Stat Exams 08/02/17 15:33 Ordered Shoulder Comp Lt [CR] Stat Exams 08/02/17 15:31 Taken Levofloxacin/Dextrose 5%-Water [Levaquin in D5W 500 MG/ Med 08/02/17 18:00 Active 100 ML] 500 mg Premix Bag 1 bag IV Q24H Resuscitation Status Routine Resus Stat 08/02/17 18:24 Ordered EKG 12 Lead [EK] Routine Ther 08/02/17 15:32 Ordered Medication Orders Acetaminophen (Tylenol) 650 mg PO Q6H PRN PRN Reason: Pain Albuterol (Proventil Neb Soln) 2.5 mg NEB QIDRT DAVY Last Admin: 08/03/17 11:39 Dose: 2.5 mg Admin: 08/03/17 05:24 Dose: 2.5 mg Admin: 08/02/17 21:22 Dose: 2.5 mg Albuterol (Proventil Neb Soln) 2.5 mg NEB Q4HRRT PRN PRN Reason: shortness of breath or wheezin Aspirin (Aspirin) 81 mg PEGTUBE DAILY [facility] Last Admin: 08/03/17 08:40 Dose: 81 mg Calcium Citrate (Calcium Citrate + D) 2 tab PO BIDMEALS [facility] Last Admin: 08/03/17 08:36 Dose: 2 tab Citalopram Hydrobromide (Celexa) 30 mg PO DAILY [facility] Last Admin: 08/03/17 08:38 Dose: 30 mg Folic Acid (Folic Acid) 1 mg FTUBE DAILY [facility] Last Admin: 08/03/17 08:40 Dose: 1 mg Gabapentin (Neurontin) 600 mg GTUBE TID [facility] Last Admin: 08/03/17 08:40 Dose: 600 mg Admin: 08/02/17 21:12 Dose: 600 mg Guaifenesin/Phenylephrine HCl (Robitussin Dm) 10 ml PO Q4H PRN PRN Reason: Cough Last Admin: 08/03/17 05:35 Dose: 10 ml Levofloxacin/Dextrose 500 mg/ (Premix) 100 mls @ 100 mls/hr IV Q24H [facility] Last Admin: 08/02/17 18:18 Dose: 100 mls/hr Lactobacillus Acidophilus/Rhamnosus (Multi-Stella Plus) 1 cap PEGTUBE BID [facility] Last Admin: 08/03/17 08:38 Dose: 1 cap Admin: 08/02/17 21:12 Dose: 1 cap Lactulose (Cephulac) 20 gm GTUBE DAILY [facility] Last Admin: 08/03/17 08:41 Dose: 20 gm Magnesium Hydroxide (Milk Of Magnesia) 30 ml PO DAILY PRN PRN Reason: Constipation Metoprolol Tartrate (Lopressor) 50 mg PO BID [facility] Last Admin: 08/03/17 08:36 Dose: 50 mg Admin: 08/02/17 21:12 Dose: 50 mg Non-Form Dicloxacillin Sodium 500 Mg 500 mg PO Q6H [facility] Stop: 08/04/17 18:01 Omeprazole (Omeprazole) 20 mg GTUBE BID@0730,2100 [facility] Last Admin: 08/03/17 08:40 Dose: 20 mg Admin: 08/02/17 21:12 Dose: 20 mg Tramadol HCl (Ultram) 50 mg PO TID [facility] Last Admin: 08/03/17 08:39 Dose: 50 mg Tramadol HCl (Ultram) 50 mg PO .X1 DURING NOC PRN PRN Reason: Pain Labs: Laboratory Tests 08/02/17 08/02/17 08/02/17 Range/Units 17:40 17:45 18:10 WBC 21.5 H (5.0-10.0) 10^3/uL RBC 5.64 (4.50-6.00) 10^6/uL Hgb 14.0 (13.0-17.0) g/dL Hct 44.9 (40.0-52.0) % MCV 79.7 L (82.0-92.0) fL MCH 24.8 L (27.0-31.0) pg MCHC 31.1 L (32.0-36.0) g/dL RDW 18.2 H (11.5-14.5) % Plt Count 408 H (150-300) 10^3/uL MPV 7.1 L (7.4-10.4) fL Neut % (Auto) 88.1 H (50.0-70.0) % Lymph % (Auto) 6.2 L (20.0-40.0) % [place] % (Auto) 5.5 (2.0-8.0) % Eos % (Auto) 0.2 L (1.0-3.0) % Baso % (Auto) 0.0 (0.0-1.0) % Neut # (Auto) 19.0 H (2.5-7.0) 10^3/uL Lymph # (Auto) 1.3 (1.0-4.0) 10^3/uL [place] # (Auto) 1.2 H (0.1-0.8) 10^3/uL Eos # (Auto) 0.0 L (0.1-0.3) 10^3/uL Baso # (Auto) 0.0 (0.0-0.1) 10^3/uL Sodium 138 (136-145) mmol/L Potassium 5.2 (3.3-5.3) mmol/L Chloride 101 (98-115) mmol/L Carbon Dioxide 25.5 (21.0-32.0) mmol/L BUN 24 (6-25) mg/dL Creatinine 0.94 (0.51-1.17) mg/dL Est Cr Clr Drug Dosing 75.20 mL/min Estimated GFR (MDRD) > 60 mL/min Glucose 114 H (70-110) mg/dL Calcium 9.5 (8.7-10.3) mg/dL Troponin I 0.06 (0.00-0.070) ng/mL B-Natriuretic Peptide 202 H (0-100) pg/mL Specimen Type Urinqcath Urine Color Yellow (YELLOW) Urine Appearance Clear (CLEAR) Urine pH 7.5 (5.0-9.0) Ur Specific [place] 1.020 (1.005-1.030) Urine Protein 30 H (NEGATIVE) mg/dL Urine Glucose (UA) Negative (NEGATIVE) mg/dL Urine Ketones Negative (NEGATIVE) mg/dL Urine Occult Blood Negative (NEGATIVE) Urine Nitrite Negative (NEGATIVE) Urine Bilirubin Negative (NEGATIVE) Urine Urobilinogen 0.2 (0.2-1.0) E.U./dL Ur Leukocyte Esterase Negative (NEGATIVE) Urine RBC 0-5 /HPF Urine WBC 0-5 /HPF Ur Epithelial Cells Few /LPF Urine Bacteria Few (NONE TO FEW) /HPF Meds: Medications Generic Name Dose Route Start Last Admin Trade Name Freq PRN Reason Stop Dose Admin Acetaminophen 650 mg 08/02/17 19:39 Tylenol PO Q6H PRN Pain Albuterol 2.5 mg 08/02/17 22:00 08/03/17 11:39 Proventil Neb Soln NEB 2.5 mg QIDRT DAVY Administration Albuterol 2.5 mg 08/02/17 20:00 Proventil Neb Soln NEB Q4HRRT PRN shortness of breath or wheezin Aspirin 81 mg 08/03/17 09:00 08/03/17 08:40 Aspirin PEGTUBE 81 mg DAILY DAVY Administration Calcium Citrate 2 tab 08/03/17 08:00 08/03/17 08:36 Calcium Citrate + D PO 2 tab BIDMEALS DAVY Administration Citalopram Hydrobromide 30 mg 08/03/17 09:00 08/03/17 08:38 Celexa PO 30 mg DAILY DAVY Administration Folic Acid 1 mg 08/03/17 09:00 08/03/17 08:40 Folic Acid FTUBE 1 mg DAILY DAVY Administration Gabapentin 600 mg 08/02/17 21:00 08/03/17 08:40 Neurontin GTUBE 600 mg TID DAVY Administration Guaifenesin/Phenylephrine HCl 10 ml 08/02/17 19:39 08/03/17 05:35 Robitussin Dm PO 10 ml Q4H PRN Administration Cough Levofloxacin/Dextrose 500 mg/ 100 mls @ 100 mls/hr 08/02/17 18:00 08/02/17 18 :18 Premix IV 100 mls/hr Q24H DAVY Administration Lactobacillus Acidophilus/Rhamnosus 1 cap 08/02/17 21:00 08/03/17 08:38 Multi-Stella Plus PEGTUBE 1 cap BID DAVY Administration Lactulose 20 gm 08/03/17 09:00 08/03/17 08:41 Cephulac GTUBE 20 gm DAILY DAVY Administration Magnesium Hydroxide 30 ml 08/02/17 19:39 Milk Of Magnesia PO DAILY PRN Constipation Metoprolol Tartrate 50 mg 08/02/17 21:00 08/03/17 08:36 Lopressor PO 50 mg BID DAVY Administration Non-Form 500 mg 08/03/17 12:00 Dicloxacillin Sodium PO 08/04/17 18:01 500 Mg Q6H DAVY Omeprazole 20 mg 08/02/17 21:00 08/03/17 08:40 Omeprazole GTUBE 20 mg BID@0730,2100 DAVY Administration Tramadol HCl 50 mg 08/03/17 09:00 08/03/17 08:39 Ultram PO 50 mg TID DAVY Administration Tramadol HCl 50 mg 08/02/17 21:37 Ultram PO .X1 DURING NOC PRN Pain Discontinued Medications Generic Name Dose Route Start Last Admin Trade Name Freq PRN Reason Stop Dose Admin Acetaminophen 1,000 mg 08/02/17 18:23 08/02/17 18:35 Tylenol Extra Strength PO 1,000 mg Q6H PRN Administration Fever Albuterol 2.5 mg 08/02/17 15:34 08/02/17 15:51 Proventil Neb Soln NEB 08/02/17 15:35 2.5 mg ONETIME ONE Administration Sodium Chloride Confirm 08/02/17 18:15 08/02/17 18:15 Normal Saline Administered 08/02/17 18:16 100 ml Dose Administration 50 mls @ as directed .ROUTE .STK-MED ONE Non-Form 0 mg 08/02/17 21:00 08/02/17 22:13 Dicloxacillin Sodium PO 08/04/17 17:00 Not Given 500 Mg QID DAVY Tramadol HCl 50 mg 08/02/17 21:00 08/02/17 21:12 Ultram PO 50 mg QID DAVY Administration Departure - Departure Time of Disposition: 18:45 Disposition: Admitted As Inpatient 64 Clinical Impression: Pneumonia Qualifiers: Laterality: left Lung location: lower lobe of lung - Discharge Information - My Orders Last 24 Hours: My Active Orders 08/02/17 15:30 CXR [Chest 2V] [CR] Stat 08/02/17 15:31 Shoulder Comp Lt [CR] Stat 08/02/17 15:32 EKG Documentation Completion [RC] EKG 12 Lead [EK] Routine 08/02/17 15:33 Cervical Spine 2V or 3V [CR] Stat 08/02/17 15:34 RT Aerosol Therapy [RC] ASDIRECTED 08/02/17 18:00 Levofloxacin/Dextrose 5%-Water [Levaquin in D5W 500 MG/100 ML] 500 mg Premix Bag 1 bag IV Q24H 08/02/17 18:24 Admission Diagnosis [ADT] Routine Height and Weight [RC] 0700 Up With Assistance [RC] DAILY Resuscitation Status Routine 08/02/17 18:25 Patient Status [ADT] Routine Vital Signs [RC] 0300,0700,1100,1500,1900,2300 08/02/17 18:29 Oxygen Therapy [RC] - Assessment/Plan Last 24 Hours: My Active Orders 08/02/17 15:30 CXR [Chest 2V] [CR] Stat 08/02/17 15:31 Shoulder Comp Lt [CR] Stat 08/02/17 15:32 EKG Documentation Completion [RC] EKG 12 Lead [EK] Routine 08/02/17 15:33 Cervical Spine 2V or 3V [CR] Stat 08/02/17 15:34 RT Aerosol Therapy [RC] ASDIRECTED 08/02/17 18:00 Levofloxacin/Dextrose 5%-Water [Levaquin in D5W 500 MG/100 ML] 500 mg Premix Bag 1 bag IV Q24H 08/02/17 18:24 Admission Diagnosis [ADT] Routine Height and Weight [RC] 0700 Up With Assistance [RC] DAILY Resuscitation Status Routine 08/02/17 18:25 Patient Status [ADT] Routine Vital Signs [RC] 0300,0700,1100,1500,1900,2300 08/02/17 18:29 Oxygen Therapy [RC] Assessment:: 1. Fever 2. Pneumonia. Plan: 1. Patient has multiple comorbidities. Lung sounds are very diminished with crackles and wheezing. Chest x-ray shows a left lower lobe pneumonia small infiltrate developing effusion. Organ admit him to begin IV antibiotics Levaquin 750 mg IV daily. Patient is a [place] resident and will have them follow and take over inpatient care.
[2017-08-02] MEDS ORDERED: Sodium Chloride 0.9% 50 ML ONE (18:15)
[2017-08-02] MEDS: Levofloxacin/Dextrose 5%-Water 500 MG in Premix Bag 1 BAG IV SCH (18:18)
[2017-08-02 18:21] LABS: CHLORIDE,CL 101 mmol/L (98-115); SODIUM,NA 138 mmol/L (136-145)
[2017-08-02] MEDS ORDERED: Acetaminophen 500 MG Tab PO PRN (18:23)
[2017-08-02] MEDS ORDERED: Acetaminophen 325 MG Tab PO PRN (19:39)
[2017-08-02] MEDS ORDERED: Magnesium Hydroxide 400 MG/5 ML Susp 30 ML Cup PO PRN (19:39)
[2017-08-02] MEDS ORDERED: Albuterol 0.083% 2.5 MG/3 ML Neb Soln NEB PRN (20:00)
[2017-08-02] MEDS ORDERED: traMADol 50 MG Tab PO SCH (21:00)
[2017-08-02] MEDS ORDERED: [UNRECOGNIZED DRUG - REMARK] PO SCH (21:00)
[2017-08-02] MEDS: Metoprolol Tartrate 50 MG Tab PO SCH (21:12)
[2017-08-02] MEDS: Gabapentin 300 MG Cap GTUBE SCH (21:12)
[2017-08-02] MEDS: Omeprazole 20 MG Cap.CR GTUBE SCH (21:12)
[2017-08-02] MEDS: B.Bifidum/B.Longum/L.Acidophilus/L.Rhamnosus (Probiotic) Cap PEGTUBE SCH (21:12)
[2017-08-02] MEDS: Albuterol 0.083% 2.5 MG/3 ML Neb Soln NEB SCH (21:22)
[2017-08-02] MEDS ORDERED: traMADol 50 MG Tab PO PRN (21:37)
[2017-08-03] MEDS: Albuterol 0.083% 2.5 MG/3 ML Neb Soln NEB SCH ×4 (05:24→21:30)
[2017-08-03] MEDS: guaiFENesin/Dextromethorphan 100-10 MG/5 ML Soln 5 ML Cup PO PRN (05:35)
[2017-08-03] MEDS: Calcium Citrate/Vitamin D3 315 MG-250 Unit Tab PO SCH ×2 (08:36→17:41)
[2017-08-03] MEDS: Metoprolol Tartrate 50 MG Tab PO SCH ×2 (08:36→21:21)
[2017-08-03] MEDS: Citalopram 20 MG Tab PO SCH (08:38)
[2017-08-03] MEDS: B.Bifidum/B.Longum/L.Acidophilus/L.Rhamnosus (Probiotic) Cap PEGTUBE SCH ×2 (08:38→21:21)
[2017-08-03] MEDS: traMADol 50 MG Tab PO SCH ×3 (08:39→21:21)
[2017-08-03] MEDS: Aspirin 81 MG Tab.Chew PEGTUBE SCH (08:40)
[2017-08-03] MEDS: Omeprazole 20 MG Cap.CR GTUBE SCH ×2 (08:40→21:21)
[2017-08-03] MEDS: Gabapentin 300 MG Cap GTUBE SCH ×3 (08:40→21:21)
[2017-08-03] MEDS: Folic Acid 1 MG Tab FTUBE SCH (08:40)
[2017-08-03] MEDS: Lactulose Soln 10 GM/15 ML 30 ML UD Cup GTUBE SCH (08:41)
--- NOTE | 2017-08-03 10:21 | PCM.HP ---
H&P History of Present Illness - General Date of Service: 08/03/17 Admit Problem/Dx: Pneumonia left lower lobe left shoulder and neck pain Source of Information: Patient, Old Records, Provider, RN Notes Reviewed, Other (review ER notes, skilled nursing notes) History Limitations: Reports: No Limitations - History of Present Illness Initial Comments - Free Text/Narative: 60 yr old Pt was admitted to the acute bed hospital through ER with early onset pneumonia, left lower lobe. Temp was 102 in ER. He is a resident of [facility]. Review of fpc notes state on day of admission he was having fever with temp 99.9, vomiting, and complained of headache with left shoulder and neck pain. He had a cough, wheezing and Respirations 30-32, lung sounds with crackles bilaterally. He was in a crabby mood. He was started on levaquin IV on admission with albuterol nebs. Pt reports he is feeling better this morning. He continues to have shortness of breath but reports improvement with albuterol nebulizers. Recent history of hospitalization with AFib with RVR. Due to recurrent GI bleed , pt was not started on anticoagulation other than ASA. During this hospitalization he was started on dicloxicillin for cellulitis around GTube. 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 He has a GTube through which he gets feedings 20 hrs a day and also takes orals. He has a left AKA. Onset of Symptoms: Reports: Gradual Symptom Onset Date: 08/02/17 (began with a light cough a week ago. Fever began on day of admission) Duration of Symptoms: Reports: Day(s): (fever day of admission, cough about a week prior to admission) Severity: Moderate Improves with: Reports: Other (albuterol nebs) Context: Reports: Other ([facility] resident) - Related Data Allergies/Adverse Reactions: Allergies Allergy/AdvReac Type Severity Reaction Status Date / Time citric acid Allergy Cannot Verified 08/02/17 19:57 Remember orange juice Allergy Sweating Verified 08/02/17 19:57 Home Medications: Home Meds Citalopram [Celexa] 30 mg PO DAILY 08/05/15 [History] Calcium Carbonate/Vitamin D3 [Calcium 600-Vit D3 400 Tablet] 1 tab PO BID [History] Folic Acid 1 mg PEGTUBE DAILY 04/03/16 [History] Gabapentin [Neurontin] 600 mg PEGTUBE TID 04/03/16 [History] Lactobacillus Combination No.4 [Probiotic] 1 each GTUBE BID 06/20/16 [History] traMADol [Ultram] 50 mg PO QID 06/20/16 [History] Lactulose 30 ml PEGTUBE DAILY 01/19/17 [History] Dextromethorphan/guaiFENesin [Robitussin DM] 10 ml PO Q4H PRN 06/05/17 [History] Acetaminophen 325 - 650 mg PO Q6H PRN 07/27/17 [History] Aspirin 81 mg PEGTUBE DAILY 07/27/17 [History] Magnesium Hydroxide [Milk of Magnesia] 30 ml PO DAILY PRN 07/27/17 [History] Omeprazole 20 mg PEGTUBE BID 07/27/17 [History] Dicloxacillin Sodium 500 mg PO Q6HR 5 Days #20 capsule 07/29/17 [Rx] Metoprolol Tartrate [Lopressor] 50 mg PO BID #60 tablet 07/29/17 [Rx] Past Medical History HEENT History: Reports: Other (See Below) (DYSPHAGIA) Other HEENT History: Dysphasia Cardiovascular History: Reports: Afib, Blood Clots/VTE/DVT (With resultant left AKA), High Cholesterol, Hypertension, Other (See Below) (recent Afib with RVR) Respiratory History: Reports: Bronchitis, Recurrent, SOB Other Respiratory History: chronic cough Gastrointestinal History: Reports: Chronic Constipation, GERD, GI Bleed, Other ( See Below) Other Gastrointestinal History: PEG Tube Genitourinary History: Reports: Urinary Incontinence Musculoskeletal History: Reports: Fracture Other Musculoskeletal History: Femur fracture Neurological History: Reports: CVA Other Neuro History: Left side paralysis Psychiatric History: Reports: Addiction, Depression Other Psychiatric History: hx of alcohol abuse and nicotine dependence Other Endocrine/Metabolic History: sugars checked QID at [facility]. Hematologic History: Reports: Anemia Other Hematologic History: Patient has many antibodies in blood. Dermatologic History: Reports: Other (See Below) Other Dermatologic History: ulcer to left foot-MSSA 04/08/16 - Infectious Disease History Infectious Disease History: Reports: Hepatitis C - Past Surgical History Head Surgeries/Procedures: Reports: None GI Surgical History: Reports: EGD Other Musculoskeletal Surgeries/Procedures:: Pt presents with left hip pain s/p fall. Social & Family History - Family History Family Medical History: Noncontributory HEENT: Reports: None Cardiac: Reports: None, ID Respiratory: Reports: None GI: Reports: None : Reports: None OBGYN: Reports: None Musculoskeletal: Reports: None Neurological: Reports: None Psychiatric: Reports: None Endocrine/Metabolic: Reports: None Hematologic: Reports: None Immunologic: Reports: None Dermatologic: Reports: None Oncologic: Reports: None - Tobacco Use Smoking Status *Q: Former Smoker Used Tobacco, but Quit: Yes Month Tobacco Last Used: Oct Second Hand Smoke Exposure: No - Caffeine Use Caffeine Use: Reports: None - Alcohol Use Alcohol Use History: Yes Days Per Week of Alcohol Use: 1 Number of Drinks Per Day: 1 Total Drinks Per Week: 1 - Recreational Drug Use Recreational Drug Use: No - Living Situation & Occupation Living situation: Reports: Extended Care Facility H&P Review of Systems - Review of Systems: Review Of Systems: See Below General: Reports: Fever, Weakness, Diaphoresis, Other (Admitted with fever, diaphoresis, weakness. Denies any of these symptoms this morning) HEENT: Reports: Headaches (headache on admission. Resolved this morning) Pulmonary: Reports: Shortness of Breath, Wheezing, Cough Cardiovascular: Reports: No Symptoms (Peg Tube due to dysphagia. He did have vomiting on day of admission. Denies Nausea, vomiting, diarrhea or constipation today. Last BM this morning) Genitourinary: Reports: No Symptoms Musculoskeletal: Reports: Other (Was admitted with headache, left shoulder and neck pain. Denies any of those symptoms today. History of left AKA) Skin: Reports: Other (Currently under treatment for cellulitis around GTube. Pt reports it is looking improved.) Psychiatric: Reports: Other (skilled nursing reports his mood was worse on day of admission. He is on celexa for depression) Neurological: Reports: Headache (headache on admission resolved now) Hematologic/Lymphatic: Reports: Other (History of GI bleed.) Exam - Exam Exam: See Below - Vital Signs Vital Signs: Last Vital Signs Temp 99.2 F 08/03/17 06:52 Pulse 97 08/03/17 08:36 Resp 22 H 08/03/17 06:52 BP 145/89 H 08/03/17 08:36 Pulse Ox 93 L 08/03/17 06:52 Weight: 152 lb 3 oz - Exam Quality Assessment: Other (on room air) Neck: Supple Lungs: Crackles, Wheezing Cardiovascular: Regular Rate, Regular Rhythm GI/Abdominal Exam: Normal Bowel Sounds, Other (PEG tube present) Extremities: Other (left AKA with no lesions to stump. Right extremity without edema. No pressure areas) Skin: Other (mucousy discharge around PEG tube. Area of resolving erythema around PEG tube. Continues with some deep erythema, mostly resolved to pink color) Neuro Extensive - Mental Status: Alert, Oriented x3 (mood down cast) - Patient Data Result Diagrams: 08/02/17 17:40 08/02/17 17:45 EKG INTERPRETATION EKG Date: 08/02/17 (EKG in ER showing nl sinus rhythm) Rhythm: NSR *Q Meaningful Use (ADM) - VTE *Q VTE Criteria *Q: VTE Mechanical Contraindications *Q: At Risk for Falls (left AKA) VTE Pharmacological Contraindications *Q: Not Candidate LT Anticoag (recurrent GI bleed) VTE Anticoagulation Contraindications: Treatment Not Tolerated (recurrent GI bleed) - VTE Risk Assess *Q Each Risk Factor Represents 1 Point: None Total Score 1 Point Risk Factors: 0 Each Risk Factor Represents 2 Points: Age 60 - 74 Years Total Score 2 Point Risk Factors: 2 Each Risk Factor Represents 3 Points: None Total Score 3 Point Risk Factors: 0 Each Risk Factor Represents 5 Points: None Total Score 5 Point Risk Factors: 0 Venous Thromboembolism Risk Factor Score *Q: 2 - Stroke *Q Stroke Criteria *Q: - AMI *Q AMI Criteria *Q: Aspirin Contraindications AMI *Q: (none) Thrombolytic/Fibrinolytic Contraindications IV (AMI) *Q: Treatment not tolerated Statin Contraindications AMI *Q: Med/TX Not Indicated/Need Problem List Initiated/Reviewed/Updated: Yes Orders Last 24hrs: Active Orders 24 hr Category Date Time Status Communication Order [RC] 0900,1500,1900,2100 Care 08/03/17 07:26 Active Mechanical Soft Diet [DIET] Diet 08/03/17 Breakfast Active Tube Feeding Adult Diet [DIET] Diet 08/02/17 Dinner Active CULTURE WOUND [RM] Routine Lab 08/03/17 07:35 Received Acetaminophen [Tylenol] Med 08/02/17 19:39 Active 650 mg PO Q6H PRN Albuterol [Proventil Neb Soln] Med 08/02/17 20:00 Active 2.5 mg NEB Q4HRRT PRN Albuterol [Proventil Neb Soln] Med 08/02/17 22:00 Active 2.5 mg NEB QIDRT Aspirin Med 08/03/17 09:00 Active 81 mg PEGTUBE DAILY B.Bif/B.Long/L.Acidoph/L.Rhamn [Multi-Stella Plus] Med 08/02/17 21:00 Active 1 cap PEGTUBE BID Calcium Citrate/Vitamin D3 [Calcium Citrate + D] Med 08/03/17 08:00 Active 2 tab PO BIDMEALS Citalopram [Celexa] Med 08/03/17 09:00 Active 30 mg PO DAILY Dextromethorphan/guaiFENesin [Robitussin DM] Med 08/02/17 19:39 Active 10 ml PO Q4H PRN Folic Acid Med 08/03/17 09:00 Active 1 mg FTUBE DAILY Gabapentin [Neurontin] Med 08/02/17 21:00 Active 600 mg GTUBE TID Lactulose [Cephulac] Med 08/03/17 09:00 Active 20 gm GTUBE DAILY Magnesium Hydroxide [Milk of Magnesia] Med 08/02/17 19:39 Active 30 ml PO DAILY PRN Metoprolol Tartrate [Lopressor] Med 08/02/17 21:00 Active 50 mg PO BID Omeprazole Med 08/02/17 21:00 Active 20 mg GTUBE BID@0730,2100 traMADol [Ultram] Med 08/02/17 21:37 Active 50 mg PO .X1 DURING NOC PRN traMADol [Ultram] Med 08/03/17 09:00 Active 50 mg PO TID Nutrition Dietitian Follow Up [OM.PC] Routine Oth 08/03/17 08:00 Ordered Medication Orders Acetaminophen (Tylenol) 650 mg PO Q6H PRN PRN Reason: Pain Albuterol (Proventil Neb Soln) 2.5 mg NEB QIDRT [facility] Last Admin: 08/03/17 05:24 Dose: 2.5 mg Admin: 08/02/17 21:22 Dose: 2.5 mg Albuterol (Proventil Neb Soln) 2.5 mg NEB Q4HRRT PRN PRN Reason: shortness of breath or wheezin Aspirin (Aspirin) 81 mg PEGTUBE DAILY [facility] Last Admin: 08/03/17 08:40 Dose: 81 mg Calcium Citrate (Calcium Citrate + D) 2 tab PO BIDMEALS [facility] Last Admin: 08/03/17 08:36 Dose: 2 tab Citalopram Hydrobromide (Celexa) 30 mg PO DAILY [facility] Last Admin: 08/03/17 08:38 Dose: 30 mg Folic Acid (Folic Acid) 1 mg FTUBE DAILY [facility] Last Admin: 08/03/17 08:40 Dose: 1 mg Gabapentin (Neurontin) 600 mg GTUBE TID [facility] Last Admin: 08/03/17 08:40 Dose: 600 mg Admin: 08/02/17 21:12 Dose: 600 mg Guaifenesin/Phenylephrine HCl (Robitussin Dm) 10 ml PO Q4H PRN PRN Reason: Cough Last Admin: 08/03/17 05:35 Dose: 10 ml Levofloxacin/Dextrose 500 mg/ (Premix) 100 mls @ 100 mls/hr IV Q24H [facility] Last Admin: 08/02/17 18:18 Dose: 100 mls/hr Lactobacillus Acidophilus/Rhamnosus (Multi-Stella Plus) 1 cap PEGTUBE BID [facility] Last Admin: 08/03/17 08:38 Dose: 1 cap Admin: 08/02/17 21:12 Dose: 1 cap Lactulose (Cephulac) 20 gm GTUBE DAILY [facility] Last Admin: 08/03/17 08:41 Dose: 20 gm Magnesium Hydroxide (Milk Of Magnesia) 30 ml PO DAILY PRN PRN Reason: Constipation Metoprolol Tartrate (Lopressor) 50 mg PO BID [facility] Last Admin: 08/03/17 08:36 Dose: 50 mg Admin: 08/02/17 21:12 Dose: 50 mg Omeprazole (Omeprazole) 20 mg GTUBE BID@0730,2100 [facility] Last Admin: 08/03/17 08:40 Dose: 20 mg Admin: 08/02/17 21:12 Dose: 20 mg Tramadol HCl (Ultram) 50 mg PO TID [facility] Last Admin: 08/03/17 08:39 Dose: 50 mg Tramadol HCl (Ultram) 50 mg PO .X1 DURING NOC PRN PRN Reason: Pain 1. Pneumonia, left lower lobe: early onset. Showing clinical improving on treatment. WBC 21.5 With left shift on admission. CXR showing infiltrate with developing effusion left lower lobe. Will treat with levaquin IV, Albuterol nebulizers. PT is difficult to draw. IV was started by anesthesia. Will monitor labs as essential to provide care. Plan repeat CBC on Saturday morning. Discharge plans: Back to skilled nursing probably on Saturday with PO levaquin. 2. Recent AFib with RVR. Continue metoprolol tartrate 50 mg bid EKG at this time shows nl sinus rhythm. If any change in status, will start on telemetry. He is not on anticoagulation due to history of recurrent GI bleed. 3. Neck and left shoulder pain: evaluated by ER, XRays showing no fractures. This morning the pain has resolved. He does have chronic pain for which he uses tramadol 50 mg qid in the fpc. Will use tid with 1 prn. Continue gabapentin. 4. History of cirrhosis of liver: continue lactulose 5. History of CVA with Dysphagia: continue PEG tube feedings. Dietary has been consulted re: difference between [place] feedings and feedings available at [facility]. Will continue on same feeding schedule. Pt can take orals with mechanical soft and thickened liquids. 6. History of GI bleed with anemia: continue omeprazole and folic acid. 7. Depression: continue citalopram.
[2017-08-03] MEDS: [UNRECOGNIZED DRUG - REMARK] PO SCH ×3 (12:26→23:04)
[2017-08-03] MEDS: Levofloxacin/Dextrose 5%-Water 500 MG in Premix Bag 1 BAG IV SCH (17:37)
[2017-08-04] MEDS: guaiFENesin/Dextromethorphan 100-10 MG/5 ML Soln 5 ML Cup PO PRN ×2 (01:20→08:09)
[2017-08-04] MEDS: Albuterol 0.083% 2.5 MG/3 ML Neb Soln NEB SCH ×4 (05:49→22:02)
[2017-08-04] MEDS: [UNRECOGNIZED DRUG - REMARK] PO SCH ×4 (05:54→18:44)
[2017-08-04] MEDS: Aspirin 81 MG Tab.Chew PEGTUBE SCH (08:10)
[2017-08-04] MEDS: Citalopram 20 MG Tab PO SCH (08:10)
[2017-08-04] MEDS: Calcium Citrate/Vitamin D3 315 MG-250 Unit Tab PO SCH ×3 (08:10→18:43)
[2017-08-04] MEDS: Omeprazole 20 MG Cap.CR GTUBE SCH ×2 (08:10→21:43)
[2017-08-04] MEDS: Lactulose Soln 10 GM/15 ML 30 ML UD Cup GTUBE SCH (08:10)
[2017-08-04] MEDS: B.Bifidum/B.Longum/L.Acidophilus/L.Rhamnosus (Probiotic) Cap PEGTUBE SCH ×2 (08:11→21:41)
[2017-08-04] MEDS: traMADol 50 MG Tab PO SCH ×3 (08:11→21:41)
[2017-08-04] MEDS: Folic Acid 1 MG Tab FTUBE SCH (08:11)
[2017-08-04] MEDS: Gabapentin 300 MG Cap GTUBE SCH ×3 (08:11→21:41)
[2017-08-04] MEDS: Metoprolol Tartrate 50 MG Tab PO SCH ×2 (08:11→21:42)
--- NOTE | 2017-08-04 16:08 | PCM.PN ---
- General Info Date of Service: 08/04/17 Admission Dx/Problem (Free Text): 60 yo pt was admitted to acute care 08/02 with early onset pneumonia. Temp was 102 in ER. He is a resident of [facility]. Review of halfway notes state on day of admission he was having fever with temp 99.9, vomiting, and complained of headache with left shoulder and neck pain. He had a cough, wheezing and Respirations 30-32, lung sounds with crackles bilaterally. He was in a crabby mood. He was started on levaquin IV on admission with albuterol nebs. Today pt reports his breathing continues to improve. He continues with a cough and wheezing. He reports improvement with albuterol nebs. States he has nearly constant wheezing, then it spontaneously stops. He has a history of dysphagia and has a PEG tube in place. He is getting feedings. He states he has not eaten anything PO since admission as he is not hungry. Neck and shoulder pain were evaluated with Troponin and EKG in ER. Troponin was WNL, EKG nl sinus rhythm Functional Status: Reports: Pain Controlled - Review of Systems General: Reports: Appetite (poor appetite) HEENT: Reports: Dysphasia (s/p CVA) Pulmonary: Reports: Shortness of Breath, Cough, Wheezing Cardiovascular: Reports: No Symptoms Gastrointestinal: Reports: Diarrhea (Pt is on lactulose for elevated liver functions. Diarrhea is chronic while on this.) Genitourinary: Reports: No Symptoms Musculoskeletal: Reports: Other (L)AKA) Skin: Reports: Other (Improvement of cellulitis around GTube) Neurological: Reports: Pre-Existing Deficit Psychiatric: Reports: No Symptoms - Patient Data Vitals - Most Recent: Last Vital Signs Temp 97.9 F 08/04/17 15:00 Pulse 79 08/04/17 15:00 Resp 20 08/04/17 15:00 BP 151/80 H 08/04/17 15:00 Pulse Ox 94 L 08/04/17 15:00 Weight - Most Recent: 153 lb 7 oz I&O - Last 24 Hours: Intake & Output 08/04/17 08/04/17 08/04/17 06:59 14:59 22:59 Intake Total 752 300 772 Balance 752 300 772 Beto Results Last 24 Hours: Microbiology 08/03/17 07:35 Wound Culture - Preliminary Gastrostomy Site Staphylococcus Coagulase Neg Med Orders - Current: Current Medications Acetaminophen (Tylenol) 650 mg PO Q6H PRN PRN Reason: Pain Albuterol (Proventil Neb Soln) 2.5 mg NEB QIDRT [facility] Last Admin: 08/04/17 15:59 Dose: 2.5 mg Albuterol (Proventil Neb Soln) 2.5 mg NEB Q4HRRT PRN PRN Reason: shortness of breath or wheezin Aspirin (Aspirin) 81 mg PEGTUBE DAILY [facility] Last Admin: 08/04/17 08:10 Dose: 81 mg Calcium Citrate (Calcium Citrate + D) 2 tab PO BIDMEALS [facility] Last Admin: 08/04/17 08:10 Dose: 2 tab Citalopram Hydrobromide (Celexa) 30 mg PO DAILY [facility] Last Admin: 08/04/17 08:10 Dose: 30 mg Folic Acid (Folic Acid) 1 mg FTUBE DAILY [facility] Last Admin: 08/04/17 08:11 Dose: 1 mg Gabapentin (Neurontin) 600 mg GTUBE TID [facility] Last Admin: 08/04/17 15:10 Dose: 600 mg Guaifenesin/Phenylephrine HCl (Robitussin Dm) 10 ml PO Q4H PRN PRN Reason: Cough Last Admin: 08/04/17 08:09 Dose: 10 ml Levofloxacin/Dextrose 500 mg/ (Premix) 100 mls @ 100 mls/hr IV Q24H [facility] Last Admin: 08/03/17 17:37 Dose: 100 mls/hr Lactobacillus Acidophilus/Rhamnosus (Multi-Stella Plus) 1 cap PEGTUBE BID [facility] Last Admin: 08/04/17 08:11 Dose: 1 cap Lactulose (Cephulac) 20 gm GTUBE DAILY [facility] Last Admin: 08/04/17 08:10 Dose: 20 gm Magnesium Hydroxide (Milk Of Magnesia) 30 ml PO DAILY PRN PRN Reason: Constipation Metoprolol Tartrate (Lopressor) 50 mg PO BID [facility] Last Admin: 08/04/17 08:11 Dose: 50 mg Non-Form Dicloxacillin Sodium 500 Mg 500 mg PO Q6H [facility] Stop: 08/04/17 18:01 Last Admin: 08/04/17 11:16 Dose: 500 mg Omeprazole (Omeprazole) 20 mg GTUBE BID@0730,2100 [facility] Last Admin: 08/04/17 08:10 Dose: 20 mg Tramadol HCl (Ultram) 50 mg PO TID [facility] Last Admin: 08/04/17 15:09 Dose: 50 mg Tramadol HCl (Ultram) 50 mg PO .X1 DURING NOC PRN PRN Reason: Pain Last Admin: 08/04/17 01:21 Dose: 50 mg Discontinued Medications Acetaminophen (Tylenol Extra Strength) 1,000 mg PO Q6H PRN PRN Reason: Fever Last Admin: 08/02/17 18:35 Dose: 1,000 mg Albuterol (Proventil Neb Soln) 2.5 mg NEB ONETIME ONE Stop: 08/02/17 15:35 Last Admin: 08/02/17 15:51 Dose: 2.5 mg Sodium Chloride (Normal Saline) Confirm Administered Dose 50 mls @ as directed .ROUTE .STK-MED ONE Stop: 08/02/17 18:16 Last Admin: 08/02/17 18:15 Dose: 100 ml Non-Form Dicloxacillin Sodium 500 Mg 0 mg PO QID [facility] Stop: 08/04/17 17:00 Last Admin: 08/02/17 22:13 Dose: Not Given Tramadol HCl (Ultram) 50 mg PO QID [facility] Last Admin: 08/02/17 21:12 Dose: 50 mg - Exam General: Alert, Oriented, Cooperative, No Acute Distress Lungs: Wheezing (inspiratory and expiratory faint wheezes throughout.) Cardiovascular: Regular Rate, Regular Rhythm GI/Abdominal Exam: Soft, Non-Tender, Other (Peg Tube in place) Extremities: Other (L)AKA. Right, no pedal edema, no skin breakdown) Skin: Other (Area around PEG tube with pink scar tissue and mucusy drainage. No erythema, no heat.) Neurological: No New Focal Deficit Psy/Mental Status: Alert - Problem List Review Problem List Initiated/Reviewed/Updated: Yes - My Orders Last 24 Hours: My Active Orders 08/05/17 05:00 CBC WITH AUTO DIFF [HEME] Routine CMP [COMPREHENSIVE METABOLIC PN,CMP] [CHEM] Routine - Assessment Assessment:: 1. Pneumonia, left lower lobe: early onset. Showing clinical improving on treatment. WBC 21.5 With left shift on admission. CXR showing infiltrate with developing effusion left lower lobe. Continue to treat with levaquin IV, pharmacy to dose. Albuterol nebulizers. PT is difficult to draw. IV was started by anesthesia. Plan repeat CBC on Saturday morning. Discharge plans: Back to snf probably on Saturday with PO levaquin. 2. Recent AFib with RVR. Continue metoprolol tartrate 50 mg bid. EKG in ER shows nl sinus rhythm. Heart rate regular. If any change in status, will start on telemetry. He is not on anticoagulation due to history of recurrent GI bleed. 3. Neck and left shoulder pain: evaluated by ER, XRays showing no fractures. Pain has resolved. He does have chronic pain for which he uses tramadol 50 mg qid in the halfway. Will use tid with 1 prn. Continue gabapentin. Troponins were WNL. 4. History of cirrhosis of liver: continue lactulose 5. History of CVA with Dysphagia: continue PEG tube feedings. Dietary has been consulted re: difference between [place] feedings and feedings available at [facility]. Will continue on same feeding schedule. Pt can take orals with mechanical soft and thickened liquids. 6. History of GI bleed with anemia: continue omeprazole and folic acid. 7. Depression: continue citalopram. 8. Cellulitis around GTube: resolved. Dicloxicillin therapy completed today. 9. Discussed code status with pt as we have conflicting information on historical chart. Pt states he does want full code. - Plan Plan:: .
[2017-08-04] MEDS: Levofloxacin/Dextrose 5%-Water 500 MG in Premix Bag 1 BAG IV SCH (19:29)
[2017-08-04] MEDS: Levofloxacin 500 MG Tab GTUBE SCH ×2 (21:30→21:41)
[2017-08-05] MEDS: Albuterol 0.083% 2.5 MG/3 ML Neb Soln NEB SCH ×2 (05:15→11:46)
[2017-08-05] MEDS: Calcium Citrate/Vitamin D3 315 MG-250 Unit Tab PO SCH (08:07)
[2017-08-05] MEDS: Lactulose Soln 10 GM/15 ML 30 ML UD Cup GTUBE SCH (08:07)
[2017-08-05] MEDS: Folic Acid 1 MG Tab FTUBE SCH (08:07)
[2017-08-05] MEDS: Citalopram 20 MG Tab PO SCH (08:07)
[2017-08-05] MEDS: B.Bifidum/B.Longum/L.Acidophilus/L.Rhamnosus (Probiotic) Cap PEGTUBE SCH (08:07)
[2017-08-05] MEDS: Gabapentin 300 MG Cap GTUBE SCH (08:07)
[2017-08-05] MEDS: Aspirin 81 MG Tab.Chew PEGTUBE SCH (08:07)
[2017-08-05] MEDS: Omeprazole 20 MG Cap.CR GTUBE SCH (08:07)
[2017-08-05] MEDS: traMADol 50 MG Tab PO SCH (08:08)
[2017-08-05 08:10] VITALS: BP 135/87
[2017-08-05] MEDS: Metoprolol Tartrate 50 MG Tab PO SCH (08:10)
[2017-08-05] MEDS ORDERED: predniSONE 20 MG Tab PO SCH (10:15)
--- NOTE | 2017-08-05 10:19 | PCM.DCSUM1 ---
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 He had clinical improvement throughout his stay and was deemed ready for discharge back to [facility]. He will follow-up with PCP Veronica Smart NP, on next group home rounds. Follow-up items underlined below in problem- based assessment and plan: # LLL pneumonia: Febrile and tachypneic on admission with cough, shortness of breath, and wheezing. On admission, WBC 21.5 with left shift and CXR with LLL infiltrate. Was started on levofloxacin and albuterol nebulizer treatments. Had symptomatic improvement throughout his stay without oxygen dependence. Given the persistent wheezing and strong history of smoking with consideration of underlying COPD, opted to start prednisone burst of 40mg x5 days. Discharged on levofloxacin, prednisone, and albuterol nebulizer treatments prn. Consider future spirometry to evaluate for COPD. # L shoulder pain: Present on admission and resolved during remainder of stay. XR without abnormality. # Abdominal cellulitis: Recent hospitalization for this. Resolved on admission. Finished course of dicloxacillin while in the hospital. 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 Continued ASA and tube feedings. # Paroxysmal trial fibrillation: Recent hospitalization for this. Outpatient echo pending for further evaluation. EKG with sinus rhythm on admission. Continued metoprolol and ASA (not on anticoagulation due to high risk of bleeding due to recurrent life-threatening UGIB while previously on anticoagulation). # Alcoholic cirrhosis: Stable. Continued lactulose. # GERD/hx recurrent UGIB: Stable. Continued omeprazole. # Depression: Stable. Continued citalopram. # Chronic pain: Stable. Continued tramadol, gabapentin, and acetaminophen. - Discharge Data Discharge Date: 08/05/17 Discharge Disposition: DC/Tfer to [facility] 03 Condition: Fair - Patient Instructions Diet: Usual Diet as Tolerated Activity: As Tolerated Showering/Bathing: February Shower Wound/Incision Care: Keep Operative Site/Wound Site Clean and Dry Notify Provider of: Fever, Increased Pain, Nausea and/or Vomiting - Discharge Plan Prescriptions/Med Rec: Albuterol [IJD: Albuterol] 2.5 mg NEB Q4HR PRN #30 nebule PRN Reason: Dyspnea Levofloxacin [Levaquin] 500 mg GTUBE 2100 5 Days #5 tablet predniSONE 40 mg PO DAILY 4 Days #4 tablet Home Medications: Home Meds Citalopram [Celexa] 30 mg PO DAILY 08/05/15 [History] Calcium Carbonate/Vitamin D3 [Calcium 600-Vit D3 400 Tablet] 1 tab PO BID [History] Folic Acid 1 mg PEGTUBE DAILY 04/03/16 [History] Gabapentin [Neurontin] 600 mg PEGTUBE TID 04/03/16 [History] Lactobacillus Combination No.4 [Probiotic] 1 each GTUBE BID 06/20/16 [History] traMADol [Ultram] 50 mg PO QID 06/20/16 [History] Lactulose 30 ml PEGTUBE DAILY 01/19/17 [History] Dextromethorphan/guaiFENesin [Robitussin DM] 10 ml PO Q4H PRN 06/05/17 [History] Acetaminophen 325 - 650 mg PO Q6H PRN 07/27/17 [History] Aspirin 81 mg PEGTUBE DAILY 07/27/17 [History] Magnesium Hydroxide [Milk of Magnesia] 30 ml PO DAILY PRN 07/27/17 [History] Omeprazole 20 mg PEGTUBE BID 07/27/17 [History] Metoprolol Tartrate [Lopressor] 50 mg PO BID #60 tablet 07/29/17 [Rx] Albuterol [IJD: Albuterol] 2.5 mg NEB Q4HR PRN #30 nebule 08/05/17 [Rx] Levofloxacin [Levaquin] 500 mg GTUBE 2100 5 Days #5 tablet 08/05/17 [Rx] predniSONE 40 mg PO DAILY 4 Days #4 tablet 08/05/17 [Rx] Referrals: Priti Acosta MD [Primary Care Provider] - (Follow-up with Dr. Veda Acosta or Veronica Smart NP, next time on rounds) - Discharge Summary/Plan Comment DC Time >30 min.: Yes - General Info Subjective Update: Mr. Del Rio reports that he wants to go back to [facility]. He has refused follow-up lab work this morning, refused replacement of IV yesterday after the prior infiltrated, and has been making minimal effort with breathing treatments. He states his breathing is better than it was at admission and currently denies any shortness of breath. He also states that his cough has improved. Denies fever, chills, chest pain, abdominal pain, nausea, change in chronic pain , or other concerns. - Patient Data Vitals - Most Recent: Last Vital Signs Temp 36.4 C 08/05/17 06:46 Pulse 83 08/05/17 09:30 Resp 22 H 08/05/17 06:46 BP 135/87 08/05/17 08:10 Pulse Ox 97 08/05/17 09:30 Weight - Most Recent: 69.144 kg I&O - Last 24 hours: Intake & Output 08/04/17 08/05/17 08/05/17 22:59 06:59 14:59 Intake Total 872 544 150 Balance 872 544 150 GERARDO Results - Last 24 hrs: Microbiology 08/03/17 07:35 Wound Culture - Final Gastrostomy Site Staphylococcus Coagulase Neg Med Orders - Current: Current Medications Acetaminophen (Tylenol) 650 mg PO Q6H PRN PRN Reason: Pain Albuterol (Proventil Neb Soln) 2.5 mg NEB QIDRT [facility] Last Admin: 08/05/17 05:15 Dose: 2.5 mg Albuterol (Proventil Neb Soln) 2.5 mg NEB Q4HRRT PRN PRN Reason: shortness of breath or wheezin Last Admin: 08/05/17 09:25 Dose: 2.5 mg Aspirin (Aspirin) 81 mg PEGTUBE DAILY [facility] Last Admin: 08/05/17 08:07 Dose: 81 mg Calcium Citrate (Calcium Citrate + D) 2 tab PO BIDMEALS [facility] Last Admin: 08/05/17 08:07 Dose: 2 tab Citalopram Hydrobromide (Celexa) 30 mg PO DAILY [facility] Last Admin: 08/05/17 08:07 Dose: 30 mg Folic Acid (Folic Acid) 1 mg FTUBE DAILY [facility] Last Admin: 08/05/17 08:07 Dose: 1 mg Gabapentin (Neurontin) 600 mg GTUBE TID [facility] Last Admin: 08/05/17 08:07 Dose: 600 mg Guaifenesin/Phenylephrine HCl (Robitussin Dm) 10 ml PO Q4H PRN PRN Reason: Cough Last Admin: 08/04/17 08:09 Dose: 10 ml Lactobacillus Acidophilus/Rhamnosus (Multi-Stella Plus) 1 cap PEGTUBE BID [facility] Last Admin: 08/05/17 08:07 Dose: 1 cap Lactulose (Cephulac) 20 gm GTUBE DAILY [facility] Last Admin: 08/05/17 08:07 Dose: Not Given Levofloxacin (Levaquin) 500 mg GTUBE 2100 [facility] Last Admin: 08/04/17 21:41 Dose: 500 mg Magnesium Hydroxide (Milk Of Magnesia) 30 ml PO DAILY PRN PRN Reason: Constipation Metoprolol Tartrate (Lopressor) 50 mg PO BID [facility] Last Admin: 08/05/17 08:10 Dose: 50 mg Omeprazole (Omeprazole) 20 mg GTUBE BID@0730,2100 [facility] Last Admin: 08/05/17 08:07 Dose: 20 mg Prednisone (Prednisone) 40 mg PO DAILY [facility] Tramadol HCl (Ultram) 50 mg PO TID [facility] Last Admin: 08/05/17 08:08 Dose: 50 mg Tramadol HCl (Ultram) 50 mg PO .X1 DURING NOC PRN PRN Reason: Pain Last Admin: 08/04/17 01:21 Dose: 50 mg Discontinued Medications Acetaminophen (Tylenol Extra Strength) 1,000 mg PO Q6H PRN PRN Reason: Fever Last Admin: 08/02/17 18:35 Dose: 1,000 mg Albuterol (Proventil Neb Soln) 2.5 mg NEB ONETIME ONE Stop: 08/02/17 15:35 Last Admin: 08/02/17 15:51 Dose: 2.5 mg Levofloxacin/Dextrose 500 mg/ (Premix) 100 mls @ 100 mls/hr IV Q24H [facility] Last Admin: 08/04/17 19:29 Dose: Not Given Sodium Chloride (Normal Saline) Confirm Administered Dose 50 mls @ as directed .ROUTE .STK-MED ONE Stop: 08/02/17 18:16 Last Admin: 08/02/17 18:15 Dose: 100 ml Non-Form Dicloxacillin Sodium 500 Mg 0 mg PO QID [facility] Stop: 08/04/17 17:00 Last Admin: 08/02/17 22:13 Dose: Not Given Non-Form Dicloxacillin Sodium 500 Mg 500 mg PO Q6H [facility] Stop: 08/04/17 18:01 Last Admin: 08/04/17 18:44 Dose: 500 mg Tramadol HCl (Ultram) 50 mg PO QID [facility] Last Admin: 08/02/17 21:12 Dose: 50 mg - Exam Physical Findings Comments:: GENERAL: Well-appearing adult male appearing older than stated age lying in hospital bed in no acute distress. HEENT: Normocephalic, atraumatic. Conjunctiva clear. Mucous membranes moist. NECK: Supple, no masses. CV: Regular rate and rhythm, no murmurs, rubs, or gallops. 2+ radial pulses. PULMONARY: Normal effort, bilateral mid lung-bases with faint expiratory wheezing, left base with occasional rhonchi. ABDOMEN: Positive bowel sounds, soft, nontender, nondistended, feeding tube site with no surrounding erythema. EXTREMITIES: LLE with well-healed AKA. DERMATOLOGIC: No rashes or suspicious lesions in exposed areas besides feeding tube site, as above. PSYCHIATRIC: Alert, interactive, cantankerous affect. *Q Meaningful Use (DIS) - VTE *Q VTE Criteria *Q: VTE Mechanical Contraindications *Q: At Risk for Falls (left AKA) VTE Pharmacological Contraindications *Q: Not Candidate LT Anticoag (recurrent GI bleed) VTE Anticoagulation Contraindications: Treatment Not Tolerated (recurrent GI bleed) - Stroke *Q Stroke Criteria *Q: - AMI *Q AMI Criteria *Q: Statin Contraindications AMI *Q: Med/TX Not Indicated/Need
== END 2017-08-05 12:36 | DRG 194 ==
LOC: KA.ED 15:02 → KA.MS 18:45
PROVIDERS: ADMIT Physician Assistant; ATTEND Family Medicine
DX: J18.9 Pneumonia, unspecified organism (principal); E78.00 Pure hypercholesterolemia, unspecified; I10 Essential (primary) hypertension; L03.311 Cellulitis of abdominal wall; I48.91 Unspecified atrial fibrillation; Z86.19 Personal history of other infectious and parasitic diseases; M25.512 Pain in left shoulder; I48.0 Paroxysmal atrial fibrillation; K70.30 Alcoholic cirrhosis of liver without ascites; K21.9 Gastro-esophageal reflux disease without esophagitis; F32.9 Major depressive disorder, single episode, unspecified; M54.2 Cervicalgia; Z86.73 Personal history of transient ischemic attack (TIA), and cerebral infarction without residual deficits; Z93.1 Gastrostomy status; Z79.899 Other long term (current) drug therapy; Z87.891 Personal history of nicotine dependence; R06.02 Shortness of breath
CPT/HCPCS: 71020; 72040; 73030; 80048; 81001; 83880; 84484; 85025; 93005; 94640; 99285 ×2; A9270; J1956; J7050; J7620; 87070

== ENCOUNTER 2018-04-16 06:59 | Day surgery (SDC) | payer MEDICARE, MEDICAID ==
[~2018-04-16 06:59] MED LIST changes: -Midazolam 1 MG/ML 2 ML SDV ONE; -fentaNYL 100 MCG/2 ML SDV ONE
[2018-04-16] MEDS ORDERED: Lactated Ringers 1,000 ML IV SCH (07:00)
[2018-04-16] MEDS ORDERED: Sodium Chloride 0.9% 5 ML Syringe FLUSH PRN (07:00)
[2018-04-16] MEDS ORDERED: Propofol 200 MG/20 ML SDV IV ONE (08:11)
[2018-04-16] MEDS ORDERED: Lidocaine 1% 50 ML MDV INJECT ONE (08:11)
--- NOTE | 2018-04-16 08:58 | PCM.OPNOTE ---
- General Post-Op/Procedure Note Date of Surgery/Procedure: 04/16/18 Operative Procedure(s): Remove and replace percutaneous gastrostomy tube. Findings: The previously present gastrostomy tube was malfunctioning. Removal replacement is being proposed today. Pre Op Diagnosis: Malfunctioning percutaneous gastrostomy tube. Post-Op Diagnosis: As above. Anesthesia Technique: MAC Primary Surgeon: Priti Acosta Condition: Good Free Text/Narrative:: Preoperative diagnosis: Malfunctioning gastrostomy tube Postoperative diagnosis: As above Procedure performed: Removal and Replace for cutaneous gastrostomy tube. Informed consent was obtained with the patient regarding this procedure. All possible complications were discussed. The patient wished to proceed. He was taken to the operating room and kept in the supine position. Monitored anesthesia care was used. The old malfunctioning gastrostomy tube was removed. A fresh 18-gauge tube was then placed without difficulty. The patient tolerated the procedure well. There were no complications. He was returned to the recovery room in excellent condition.
[2018-04-16 11:26] VITALS: BP 144/79
== END 2018-04-16 09:50 ==
LOC: KA.SDS 06:59
PROVIDERS: ATTEND Family Medicine
PROC: 0D20XUZ Change Feeding Device in Upper Intestinal Tract, External Approach (ICD-10-PCS; principal; 2018-04-16)
DX: K94.23 Gastrostomy malfunction (principal); I69.391 Dysphagia following cerebral infarction; R13.10 Dysphagia, unspecified; F32.9 Major depressive disorder, single episode, unspecified; J44.9 Chronic obstructive pulmonary disease, unspecified; I10 Essential (primary) hypertension; Z79.82 Long term (current) use of aspirin; Z79.899 Other long term (current) drug therapy; E78.5 Hyperlipidemia, unspecified; K21.9 Gastro-esophageal reflux disease without esophagitis; I48.0 Paroxysmal atrial fibrillation; Z88.8 Allergy status to other drugs, medicaments and biological substances
CPT/HCPCS: 00731; J2704; J7120

== ENCOUNTER 2019-07-22 08:06 | Day surgery (SDC) | payer MEDICARE, MEDICAID ==
[~2019-07-22 08:06] MED LIST changes: +Lactated Ringers 1,000 ML IV SCH; +Lidocaine 2% 100 MG/5 ML Syringe ONE; +Sodium Chloride 0.9% 10 ML Syringe FLUSH PRN
[2019-07-22] MEDS ORDERED: Albuterol/Ipratropium 3.0-0.5 MG/3 ML Neb Soln NEB ONE (08:53)
[2019-07-22 08:54] VITALS: BP 142/67; PULSE 53
--- NOTE | 2019-07-22 10:28 | PCM.OPNOTE ---
- General Post-Op/Procedure Note Date of Surgery/Procedure: 07/22/19 Operative Procedure(s): Proposed Gastrostomy tube change. Findings: The existing tube was checked and it appeared to be working well. Pre Op Diagnosis: Mal finctioning G tube. Anesthesia Technique: Moderate Sedation Primary Surgeon: Priti Acosta Complications: None Condition: Good Free Text/Narrative:: Pre operative Diagnosis: Malfunctionig G tube Post Operative Diagnosis: Tube is functioning well. Procedure. The patient was in the supine position. We engaged the tube and flushed it with saline. It flushed freely. I also checked the retainer and the inflating balloon. They all were functioning well. The procedure was terminated and the old tube was kept in. the patient was then discharged to his group home.
== END 2019-07-22 10:15 | disposition home or self-care (01) ==
LOC: KA.SDS 08:06
PROVIDERS: ATTEND Family Medicine
DX: K94.23 Gastrostomy malfunction (principal); I10 Essential (primary) hypertension; F32.9 Major depressive disorder, single episode, unspecified; G89.29 Other chronic pain; M54.9 Dorsalgia, unspecified; Z79.891 Long term (current) use of opiate analgesic; Z79.899 Other long term (current) drug therapy
CPT/HCPCS: J7120; J7620-GY

== ENCOUNTER 2020-08-29 17:35 | Emergency (ER) | payer MEDICARE, MEDICAID ==
--- NOTE | 2020-08-29 19:05 | EDM.PDOC ---
ED HPI GENERAL MEDICAL PROBLEM - General Chief Complaint: General Stated Complaint: FEVERS, SHORT OF BREATH Time Seen by Provider: 08/29/20 18:29 Source of Information: Reports: Patient History Limitations: Reports: No Limitations - History of Present Illness INITIAL COMMENTS - FREE TEXT/NARRATIVE: Patient brought from [place] via EMS with report of hypoxia and lung crackles. He is Covid positive. Patient doesn't really know why he is here as he doesn't feel short of breath and is in no pain. He is on oxygen 2 liters nc with sats steady at 97% on arrival and continuing. - Related Data Allergies Allergy/AdvReac Type Severity Reaction Status Date / Time citric acid Allergy Cannot Verified 04/16/18 08:03 Remember orange juice Allergy Sweating Verified 04/16/18 08:03 Home Meds: Home Meds Calcium Carbonate/Vitamin D3 [Calcium 600-Vit D3 400 Tablet] 1 tab PO BID 04/03/16 [History] Folic Acid 1 mg PEGTUBE DAILY 04/03/16 [History] Gabapentin [Neurontin] 600 mg PEGTUBE TID 04/03/16 [History] Lactobacillus Combination No.4 [Probiotic] 1 cap GTUBE BID 06/20/16 [History] traMADol [Ultram] 50 mg PO BEDTIME PRN 06/20/16 [History] Lactulose 30 ml PEGTUBE DAILY 01/19/17 [History] Acetaminophen 650 mg PO Q6H PRN 07/27/17 [History] Aspirin 81 mg PEGTUBE DAILY 07/27/17 [History] Omeprazole 20 mg PEGTUBE BID 07/27/17 [History] Metoprolol Tartrate [Lopressor] 50 mg PO BID 04/15/18 [History] Ondansetron [Zofran ODT] 4 mg PO Q6H PRN 04/15/18 [History] lisinopriL [Prinivil] 5 mg PO DAILY 10/17/18 [History] Metoclopramide HCl 10 mg PO DAILY 07/21/19 [History] cloNIDine [Catapres-TTS 1] 1 each TD Q7D 07/21/19 [History] DULoxetine [Cymbalta] 30 mg PO DAILY 08/29/20 [History] Pyridoxine HCl (Vitamin B6) [Vitamin B-6] 25 mg PO DAILY 08/29/20 [History] traMADol HCl [Tramadol HCl] 50 mg PO BID 08/29/20 [History] Past Medical History - Past Health History Medical/Surgical History: Denies Medical/Surgical History HEENT History: Reports: Hard of Hearing, Other (See Below) Other HEENT History: Dysphasia Cardiovascular History: Reports: Afib, High Cholesterol, Hypertension Respiratory History: Reports: Bronchitis, Recurrent, SOB Other Respiratory History: chronic cough Gastrointestinal History: Reports: Chronic Constipation, GERD, GI Bleed Other Gastrointestinal History: PEG Tube Genitourinary History: Reports: Urinary Incontinence Musculoskeletal History: Reports: Amputation, Fracture Other Musculoskeletal History: Femur fracture Neurological History: Reports: CVA Other Neuro History: Left side paralysis Psychiatric History: Reports: Addiction, Depression Other Psychiatric History: hx of alcohol abuse and nicotine dependence Other Endocrine/Metabolic History: sugars checked QID at [place]. Hematologic History: Reports: Anemia Other Hematologic History: Patient has many antibodies in blood. Immunologic History: Reports: None Oncologic (Cancer) History: Reports: None Dermatologic History: Reports: Other (See Below) Other Dermatologic History: ulcer to left foot-MSSA 04/08/16 - Infectious Disease History Infectious Disease History: Reports: None Other Infectious Disease History: pat. cannot remember - Past Surgical History Head Surgeries/Procedures: Reports: None, Other (See Below) Respiratory Surgical History: Reports: None GI Surgical History: Reports: Cholecystectomy, EGD, ERCP Male Surgical History: Reports: None Neurological Surgical History: Reports: None Other Musculoskeletal Surgeries/Procedures:: Pt presents with left hip pain s/p fall. Oncologic Surgical History: Reports: None Social & Family History - Family History Family Medical History: Noncontributory HEENT: Reports: None Cardiac: Reports: None, Afib, NE Respiratory: Reports: None GI: Reports: None : Reports: None OBGYN: Reports: None Musculoskeletal: Reports: None Neurological: Reports: None Psychiatric: Reports: None Endocrine/Metabolic: Reports: None Hematologic: Reports: None Immunologic: Reports: None Dermatologic: Reports: None Oncologic: Reports: None - Tobacco Use Tobacco Use Status *Q: Former Tobacco User Used Tobacco, but Quit: Yes Month/Year Tobacco Last Used: quit years madi - Caffeine Use Caffeine Use: Reports: None - Recreational Drug Use Recreational Drug Use: Yes Drug Use in Last 12 Months: No - Living Situation & Occupation Living situation: Reports: Extended Care Facility ED ROS GENERAL - Review of Systems Review Of Systems: See Below Constitutional: Denies: Fever, Chills, Malaise, Weakness HEENT: Denies: Ear Pain, Throat Pain, Vision Change Respiratory: Reports: Sputum (a little). Denies: Shortness of Breath, Cough Cardiovascular: Denies: Chest Pain, Lightheadedness GI/Abdominal: Reports: Nausea, Vomiting. Denies: Abdominal Pain, Diarrhea : Denies: Dysuria, Flank Pain Musculoskeletal: Denies: Neck Pain, Shoulder Pain, Arm Pain, Back Pain, Hand Pain, Leg Pain (bilat AKA) Skin: Denies: Cyanosis, Jaundice, Mottled, Pallor, Diaphoresis Neurological: Denies: Confusion, Dizziness, Headache, Seizure, Trouble Speaking Psychiatric: Denies: Agitation, Anxiety, Confusion ED EXAM, GENERAL - Physical Exam Exam: See Below Exam Limited By: No Limitations General Appearance: Alert, WD/WN, No Apparent Distress Eye Exam: Bilateral Eye: EOMI, Normal Inspection, PERRL Ears: Normal External Exam, Hearing Grossly Normal Nose: Normal Inspection, No Blood Throat/Mouth: Normal Inspection, Normal Lips, Normal Voice, No Airway Compromise Head: Atraumatic, Normocephalic Neck: Normal Inspection, Full Range of Motion Respiratory/Chest: No Respiratory Distress, No Accessory Muscle Use, Rhonchi (coarse in upper airway). No: Crackles, Rales, Wheezing, Stridor Cardiovascular: Regular Rate, Rhythm, No Murmur Peripheral Pulses: 2+: Carotid (L), Carotid (R), Radial (L), Radial (R) GI/Abdominal: Normal Bowel Sounds, Soft, Non-Tender, No Organomegaly, No Distention Back Exam: Normal Inspection, Full Range of Motion. No: CVA Tenderness (L), CVA Tenderness (R) Extremities: Normal Inspection, Normal Range of Motion, Other (AKA bilat) Neurological: Alert, Oriented, Normal Cognition, No Motor/Sensory Deficits Psychiatric: Normal Affect, Normal Mood Skin Exam: Warm, Dry, Intact, Normal Color, No Rash Course - Vital Signs Last Recorded V/S: Last Vital Signs Temp 97.9 F 08/29/20 19:50 Pulse 105 H 08/29/20 20:24 Resp 18 08/29/20 20:24 BP 116/71 08/29/20 20:24 Pulse Ox 93 L 08/29/20 20:24 - Orders/Labs/Meds Orders: Active Orders 24 hr Category Date Time Status Chest 1V Frontal [CR] Stat Exams 08/29/20 18:40 Ordered Labs: Laboratory Tests 08/29/20 08/29/20 Range/Units 19:00 19:00 WBC 14.52 H (5.00-10.00) 10^3/uL RBC 4.95 (4.50-6.00) 10^6/uL Hgb 14.0 (13.0-17.0) g/dL Hct 44.2 (40.0-52.0) % MCV 89.3 D (82.0-92.0) fL MCH 28.3 (27.0-31.0) pg MCHC 31.7 L (32.0-36.0) g/dL RDW 16.6 H (11.5-14.5) % Plt Count 224 (150-400) 10^3/uL MPV 9.9 (7.4-10.4) fL Immature Gran % (Auto) 0.6 (0.0-5.0) % Neut % (Auto) 72.2 H (50.0-70.0) % Lymph % (Auto) 15.2 L (20.0-40.0) % Towner % (Auto) 10.5 H (2.0-8.0) % Eos % (Auto) 1.2 (1.0-3.0) % Baso % (Auto) 0.3 (0.0-1.0) % Neut # (Auto) 10.49 H (2.50-7.00) 10^3/uL Lymph # (Auto) 2.21 (1.00-4.00) 10^3/uL Towner # (Auto) 1.53 H (0.10-0.80) 10^3/uL Eos # (Auto) 0.17 (0.10-0.30) 10^3/uL Baso # (Auto) 0.04 (0.00-0.10) 10^3/uL Immature Gran # (Auto) 0.08 (0.00-0.50) 10^3/uL Sodium 140 (136-145) mmol/L Potassium 4.2 (3.3-5.3) mmol/L Chloride 103 (98-115) mmol/L Carbon Dioxide 27.0 (21.0-32.0) mmol/L Anion Gap 14.2 (5-15) mmol/L BUN 36 H (6-25) mg/dL Creatinine 0.69 (0.51-1.17) mg/dL Est Cr Clr Drug Dosing TNP Estimated GFR (MDRD) > 60 mL/min Glucose 119 H (75 - 99) mg/dL Calcium 9.2 (8.7-10.3) mg/dL Total Bilirubin 0.6 (0.2-1.0) mg/dL AST 35 (15-37) U/L ALT 46 (12-78) U/L Alkaline Phosphatase 113 (46-116) IU/L Total Protein 7.7 (6.4-8.2) g/dL Albumin 2.87 L (3.00-4.80) g/dL Meds: Medications Discontinued Medications Generic Name Dose Route Start Last Admin Trade Name Freq PRN Reason Stop Dose Admin Azithromycin 500 mg 08/29/20 19:55 08/29/20 20:11 Zithromax PO 08/29/20 19:56 500 mg ONETIME ONE Administration Ceftriaxone Sodium 1 gm 08/29/20 19:55 08/29/20 20:12 Rocephin IVPUSH 08/29/20 19:56 1 gm ONETIME ONE Administration Dexamethasone 6 mg 08/29/20 19:56 08/29/20 20:19 Decadron IVPUSH 08/29/20 19:57 6 mg ONETIME ONE Administration Sodium Chloride 1,000 mls @ 999 mls/hr 08/29/20 19:09 08/29/20 19:41 Normal Saline IV 08/29/20 20:09 999 mls/hr .BOLUS ONE Administration Sterile Water Confirm 08/29/20 20:03 08/29/20 20:23 Sterile Water For Injection Administered 08/29/20 20:04 10 mls/hr Dose Administration 20 mls @ as directed .ROUTE .STK-MED ONE - Re-Assessments/Exams Free Text/Narrative Re-Assessment/Exam: 08/29/20 19:09 Patient says he hasn't been able to keep water down lately and may be dehydrated. 08/29/20 19:57 CXR report says "faint bilateral interstitial pattern". CBC is 14.5 with ANC 10.5. I will treat to cover CAP as well as covid pneumonia. Patient took off his oxygen and sats maintained at 93%. Departure - Departure Time of Disposition: 20:24 Disposition: DC/Tfer to SNF 03 Condition: Good Clinical Impression: CAP (community acquired pneumonia), COVID-19 - Discharge Information Referrals: Sheron Hernandez [employer] [Primary Care Provider] - Forms: ED Department Discharge Additional Instructions: Instructions on SNF order sheet. Sepsis Event Note (ED) - Evaluation Sepsis Screening Result: Possible Sepsis Risk - Focused Exam Vital Signs: Vital Signs Temp Pulse Resp BP Pulse Ox 08/29/20 20:24 105 H 18 116/71 93 L 08/29/20 19:50 97.9 F 105 H 20 100/65 92 L 08/29/20 19:32 85 18 135/80 97 08/29/20 18:15 104 H 21 H 127/83 96 08/29/20 18:00 101 H 22 H 129/89 95 08/29/20 17:50 99.2 F 99 22 H 142/77 H 96 - My Orders Last 24 Hours: My Active Orders 08/29/20 18:40 Chest 1V Frontal [CR] Stat - Assessment/Plan Last 24 Hours: My Active Orders 08/29/20 18:40 Chest 1V Frontal [CR] Stat
[2020-08-29] MEDS ORDERED: Sodium Chloride 0.9% 1,000 ML IV ONE (19:09)
[2020-08-29 19:35] LABS: ANION GAP 14.2 mmol/L (5-15); CHLORIDE,CL 103 mmol/L (98-115); SODIUM,NA 140 mmol/L (136-145)
[2020-08-29] MEDS ORDERED: Azithromycin 250 MG Tab PO ONE (19:55)
[2020-08-29] MEDS ORDERED: cefTRIAXone 1 GM Vial IVPUSH ONE (19:55)
[2020-08-29] MEDS ORDERED: Dexamethasone 4 MG/ML SDV IVPUSH ONE (19:56)
[2020-08-29] MEDS ORDERED: Water For Injection, Sterile 20 ML ONE (20:03)
[2020-08-29 20:52] VITALS: BP 107/62; PULSE 90
--- NOTE | 2020-08-30 09:08 | CR ---
[id number] RAD/RAD Chest PA or AP 1V EXAM: SINGLE VIEW CHEST. INDICATION: SHORTNESS OF BREATH COMPARISON: CORRELATION IS MADE WITH AUGUST 02, 2017 FINDINGS: There is a faint bilateral interstitial pattern The cardiac silhouette is stable IMPRESSION: FAINT BILATERAL INTERSTITIAL PATTERN CONSIDER FOLLOW-UP Cesar Ovalles MD 08/30/20 0907 Thank you for allowing us to participate in the care of your patient.
== END 2020-08-29 21:45 ==
LOC: KA.ED 17:35
DX: U07.1 COVID-19 (principal); J12.89 Other viral pneumonia; I48.91 Unspecified atrial fibrillation; I10 Essential (primary) hypertension; K21.9 Gastro-esophageal reflux disease without esophagitis; F32.9 Major depressive disorder, single episode, unspecified; Z91.018 Allergy to other foods; Z79.82 Long term (current) use of aspirin; Z79.899 Other long term (current) drug therapy
CPT/HCPCS: 36415; 71045; 80053; 85025; 96374; 96375; 99284; 99285-25; A9270-GY; J0696; J1100; J7030